=== PATIENT | male | born 1935 | race Caucasian/White ===

== ENCOUNTER 2022-06-15 05:40 | Day surgery (SDC) | payer MEDICARE, BC, SELFPAY ==
--- NOTE | 2022-06-05 10:14 | PCM.HP.BLA ---
History and Physical History and Physical [facility] Patient Name: Cecilio Gutiérrez : 1935 From:? LIV PADILLA PA-C? DATE OF SURGERY:? 06/15/2022 SCHEDULED PROCEDURE:? right total hip arthroplasty HISTORY OF PRESENT ILLNESS: Preoperative history and physical exam was performed on June 03, 2022.? This is an 86-year-old male who is been having ongoing pain for the past several months with his right hip.? Pain can still reach as high as a 6/10.? Pain has been constant.? He has start up pain.? Pain is located in the right groin extending posteriorly and into the lateral hip.? He gets some radiation into the knee.? He complains of some numbness in the legs that he is getting worked up by the primary care physician.? Patient states the pain awakens him at night.? He has increased pain going up and down stairs, walking, getting up from a seated position and getting in and out of a car.? Patient has been using a cane for ambulatory assistance.? He has tried previous physical therapy and Tylenol for pain control.? Patient denies previous history of use of oral steroids or alcohol use.? Patient's x-rays reveal avascular necrosis.? Denies any bends from deep-sea diving.? Patient has medical history pertinent for depression, hypertension, gastroesophageal reflux disease, and gout.? Denies previous history of any surgery on the left hip.? After failing conservative measures and discussing treatment options was Dr. Stef Elizabeth, the patient does wish to proceed with a right total hip arthroplasty.? We are obtaining surgical clearance from the primary care physician Dr. Rivera. REVIEW OF SYSTEMS: Review Of Systems: Constitutional: Denies change in appetite, fever and weight change. Cardiovasular: Denies chest pain, heart murmur and irregular heartbeat. Respiratory: Denies cough, pneumonia, shortness of breath, tuberculosis and wheezing. Gastrointestinal: Reports heartburn, but denies constipation, diarrhea, nausea, rectal itching, bloody stools and vomiting. Musculoskeletal: Reports gait disturbance, trouble walking and weakness, but denies leg swelling and pain. Skin: Denies Raynaud's, history of shingles and tattoo. Neurological: Reports ambulatory dysfunction, dizziness and numbness/tingling but denies tremor. Psychiatric: Reports anxiety, but denies insomnia and stress. Hematologic/Lymphatic: Denies anemia, bleeding/bruising tendency and past transfusion. Reviewed and updated. PAST MEDICAL HISTORY: Advance Care Plan: No Advance Directives Effective Date: 05/27/2022 Past Medical History: Medical Problems: Acid Reflux, Depression, Gout, Hard of Hearing, High Blood Pressure Accidents: Sports Related Injury - LT KNEE Surgical Hx: Knee Arthroscopy Lt - (1955) Knee Replacement Lt - (1976) Prostatectomy - (1997) [place] Hernia Repair - (2007) [facility] Shoulder Arthroscopy LT - (1995) [place] Shoulder Arthroscopy RT - (1999) [place] Anesthesia Complications: None Assistive Devices: Glasses, Dentures, Hearing Aid, Walker Reviewed and updated. SOCIAL HISTORY: Social History: Marital: .Occupation: Retired.Work Status: Retired.Hand Dominance: Right-handed. Personal Habits:? Cigarette Use: Never Smoked Cigarettes.Smokeless Tobacco: Never Used Smokeless Tobacco.E-Cigarette Use: Never used.Alcohol: Occasionally.Drug Use: Denies Use.Enjoy Exercising: Never Exercises. Reviewed and updated. VITALS: Ht: 66 Wt: 178lb Wt k.741 BMI: 28.7 BP: 122/68 Pulse: 84 Resp: 14 T: 98.2 T: 36.8C Pain Level: 5 O2SatR: 100 ALLERGIES: No Known Drug Allergy? MEDICATIONS: Oxycodone HCL 5 mg 1-2 tab by mouth every 4 hours, Zofran 4 mg one by mouth every 8 as needed nausea, Famotidine 20 mg 1 by mouth every day, Simvastatin 20 mg take 1 tablet by mouth at bedtime, Doxazosin Mesylate 8 mg take 2 tablets by mouth once daily, Allopurinol 300 mg take 1 tablet by mouth once daily, Escitalopram Oxalate 20 mg take 1 tablet by mouth once daily, Meloxicam 15 mg 1 by mouth once daily PRE-OP EXAM:? General appearance:NORMAL? ? ? Other: Eyes: Conjunctivae and lids: NORMAL? Pupils: ERR Ears, Nose, Mouth, and Throat: NORMAL? Other: Inspection of lips, teeth and gums: NORMAL? ?Other: Neck: Examination of neck: no masses noted. Respiratory: Assessment of respiratory effort: NORMAL? ?Other: ?Auscultation of lungs: clear to auscultation no wheezes, rhonchi or rales. Cardiovascular:? Auscultation of heart: regular rate and rhythm, no murmurs, gallops or rubs. PHYSICAL EXAMINATION: Patient does walk with an antalgic gait.? Right hip is without erythema or signs of infection.? He has tenderness to palpation over the lateral hip.? Patient has a 5 flexion contracture with flexion to 60, internal rotation 5, external rotation 20.? Pain is increased with range of motion.? Sensation intact to light touch to bilateral lower extremities.? The right lower extremity is 2 mm shorter when comparing to the left. IMAGING STUDIES: X-rays of the right hip reveal joint space narrowing, subchondral sclerosis, bony collapse, osteophyte formation consistent with avascular necrosis with associated severe stage IV osteoarthritis IMPRESSION: 1.? 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 Hypertension 3.? Gastroesophageal reflux disease 4.? Depression 5.? History of gout PLAN: Dr. Stef Elizabeth did discuss and review with the patient all treatment options including surgical versus nonsurgical options.? Patient does wish to proceed with the above-stated procedure.? Potential risks, benefits, and complications of the procedure were discussed in detail including but not limited to , infection, nerve and blood vessel damage, persistent pain, numbness, tingling, paresthesias, blood clot, pulmonary embolism, and requirement for possible further surgery.? The patient expressed full understanding and has no further questions for the doctor.? Patient does agree to proceed with the above-stated procedure and has signed the surgery consent form. We discussed the current risks associated with COVID 19.? This does include the risk of exposure while in the hospital.? Patient was reassured local hospitals have low infection rates and are taking all necessary precautions to avoid exposure to patients.? In addition, we discussed strategies that can be used to help limit exposure including those that limit the patient's time in the hospital.? Also using strategies to limit the patient's need for continued inpatient services after being discharged from the hospital.? Patient was notified that we will need to comply with any screening or testing the hospital wishes to perform or that surgery may be delayed for any positive results. This dictation was created using voice recognition software. Phonetic and/or grammatical errors may exist. ___? I have re-examined the patient.? There are no clinical changes since date of exam. ___? See progress notes for changes. ___? Dictated on admission Date: ? ? ?Time: Signature:
[2022-06-10 13:26] LABS: Absolute Neutrophil Count 6.2 X10^3/uL (2.0-7.7); Basophil# 0.01 X10^3/uL; Basophil% 0.1 % (0-1); Eosinophil# 0.13 X10^3/uL; Eosinophils% 1.4 % (0-5); Hematocrit 32.5 % (40-54); Hemoglobin 10.1 g/dL (13.0-16.5); Lymphocyte % 26.3 % (19-41); Mean Corp Hgb Conc 31.1 g/dL (32-36); Mean Corpuscular Hgb 30.2 pg (27.0-32.0); Mean Corpuscular Volume 97.3 fL (80-94); Mean Platelet Vol. 10.5 fl (6.2-12.0); Monocyte# 0.63 X10^3/uL; Monocyte% 6.6 % (0-10); NRBC Flagged by Analyzer 0 % (0-5); Neutrophil # 6.18 X10^3/uL (2.7-7.7); Neutrophil % 64.9 % (47-70); Platelet Count 141 K/mm3 (150-450); RBC Distribution Width CV 13.6 % (11.6-14.6); RBC Distribution Width SD 48.4 fl (35.1-43.9); Red Blood Count 3.34 M/mm3 (4.6-6.2); White Blood Count 9.5 K/mm3 (4.4-11.0)
[2022-06-10 13:43] LABS: Hemoglobin A1c 5.5 % (3.8-5.6)
[2022-06-10 13:49] LABS: Magnesium 2.2 mg/dL (1.6-2.6)
[2022-06-10 13:52] LABS: Albumin, Serum 3.5 g/dL (3.2-5.0); Anion Gap 6 (5-15); BUN 41 mg/dL (7-18); BUN/Creat Ratio 32.5 RATIO (10-20); Calcium,Total 10.5 mg/dL (8.5-10.1); Chloride 106 mmol/L (98-107); Creatinine, Serum 1.26 mg/dL (0.70-1.30); EST Glomerular Filtration Rate 58 mL/min (>60); Est Glom Filt Rate - Afr Amer 70 mL/min (>60); Glucose 113 mg/dL (74-106); Potassium 4.5 mmol/L (3.5-5.1); Sodium Level 140 mmol/L (136-145)
[2022-06-15] VITALS (13 sets, daily range): BP systolic 92–141; BP diastolic 52–93; PULSE 61–106; RESP 14–18; TEMP 36.2–36.8; O2SAT 96–100; BMI 28.5
--- NOTE | 2022-06-15 | HIP_PTH ---
PATIENT: PANCHO BERRY LOC: [facility] U#:[id number] AGE/SX: 86/M ROOM: RE06/15/[address]: Dr. Stef Elizabeth MD : 1935 BED: DIS: 06/15/2022 SPEC #: [id number] RECD: 06/15/22 12:16 STATUS: ARIELLE REIvan #: [id number] CAITLYN: 06/15/22 00:[address]: Stef Elizabeth DEPT: SURGICAL PATHOLOGY RECD BY: Bakari White ENTERED: 06/15/22 12:17 SP TYPE: TOTAL HIP OTHR DR: Dr. 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 YAYA:cam 06/20/2022 MICROSCOPIC DESCRIPTION Slides are reviewed. GROSS DESCRIPTION Received is one container labeled with the patient's name and designated right femoral head. The specimen consists of a markedly deformed huffman femoral head measuring 4 x 3.5 x 4 cm. The articular surface shows an extensive area of erosion. Also present in the specimen container are multiple irregular fragments of bone reamings and pink-yellow soft tissue measuring in aggregate 9 x 8 x 3 cm. [employer] Saw Tender sections are submitted in two cassettes as follows: 1 - bone reamings and soft tissue, 2??femoral head after decalcification. / YAYA:cam 06/15/2022 TC:5 [facility]: [id number], [id number]
[2022-06-15] MEDS: Celecoxib 200 MG Capsule 400 MG PO (06:32)
[2022-06-15] MEDS: Acetaminophen 500 MG Tablet 1000 MG PO ×2 (06:32→14:00)
[2022-06-15] MEDS: Gabapentin 600 MG Tablet PO (06:32)
[2022-06-15] MEDS: Lactated Ringers 1,000 ML 125 ML IV ×2 (06:33→11:11)
[2022-06-15 06:40] LABS: Bedside Glucose 83 mg/dL (74-106)
--- NOTE | 2022-06-15 07:51 | OP.PCM_ITS ---
Report of Operation Date of Procedure: 06/15/22 Pre-Operative Diagnosis: Right hip avascular necrosis Post-Operative Diagnosis: Right hip avascular necrosis Surgery/Procedure Performed:: Right minimally invasive direct anterior total hip replacement Description of Surgical Findings:: Stable hip with equal leg length Surgeon: Stef Elizabeth canine enforcement officer: Radu So Type of Anesthesia: Spinal Anesthesiologist: Richie Catherine Special Medications: 2 g Ancef, 1 g TXA at incision, 1 g TXA closure, 10 mg Decadron, joint cocktail (5 mg Duramorph, 30 mL of 0.5% Ropivicaine, 1000 units of epinephrine, 30 mg of Toradol) Specimen's removed: Bony cuts Estimated Blood Loss (mL): 350 Fluids Replaced: 1400 mL crystalloid Description of Procedure: Components used: 1. Accolade 2 [place] femoral stem size 7 127? 2. [place] trident 2 acetabular shell size 60 mm 3. [place] X3 polyethylene G 4. [place] Biolox delta 36mm, 2.5mm femoral head Brief history operative indications: 86 yo m who failed conservative measures for their hip avascular necrosis. X- rays were consistent avascular necrosis with osteoarthritis including joint space narrowing, osteophyte formation and subchondral cysts. Total hip replacement was discussed with the patient with risks and benefits including but not limited to blood loss, DVTs, PEs, neurovascular damage, dislocation, general risks of anesthesia including loss of life. Patient demonstrated an understanding medical clearance is obtained the patient was consented for surgery. Procedure: On the date of procedure the patient's right hip was marked in the preoperative area. Patient was then taken back to the operating room where anesthesia assumed control of the C-spine and airway and administered anesthetic. Patient was transferred to the operating table and placed in the supine position. The hips were placed at the break of the bed and a sacral bump was placed. The right lower extremity was then prepped out in a sterile fashion using chlorhexidine while the surgeon scrubbed. The PA was vital in the positioning of the patient. Upon reentering the room the right lower extremity was draped in the standard orthopedic fashion and the incision was marked. A timeout was called and everyone agreed upon the side, the site, the procedure be performed, antibody given, and patient's identity. At this time incision was made through skin, subcutaneous tissue, and fat down to fascia. The fascia was then incised and the TFL was retracted laterally. A retractor was placed on the lateral border of the femoral neck. Attention was directed to the inferior portion of the approach and all crossing vessels were identified and appropriately coagulated. A retractor was then placed on the medial portion of the femoral neck. The anterior capsule was then cleared of all soft tissue and then H shaped capsulotomy was made. The retractors were then placed inside the capsule. The femoral neck was identified and a cleanup cut was made. At this time a power corkscrew was used to remove the femoral head. Attention was then turned toward the acetabulum where the soft tissues were appropriately retracted and the acetabulum was sequentially reamed to 60 mm. A 60 mm cup was then selected and impacted into place. Acetabular liner was impacted into place and locking mechanism was verified. The position of the acetabular cup was then verified under live fluoroscopy. Attention was then turned to the femur. Soft tissue releases on the medial and lateral femoral neck were appropriately done, the leg was externally rotated and lateralized. A Drake retractor was placed medially and proximally to the greater trochanter this allowed appropriate visualization and exposure of the femoral canal. Rongeour was then used to remove excess lateral bone. A canal finder and entry broach were used to open the proximal canal. Once we verified we were down the femoral canal we subsequently broached up to a size 7 femur. The appropriate neck was placed in the previously selected head was trialed with a 2.5 mm neck. Traction was pulled and the hip was reduced with internal rotation. Once it was appropriately reduced and stability was checked. There was minimal shuck, equal leg lengths and appropriate stability with hyperextension and external rotation as well as with 90? flexion and internal rotation. Fluoroscopy was then also used to verify the position of the components and leg lengths using the contralateral side for comparison. The trial components were then dislocated the proximal femur was again exposed and the components were removed from the wound. The final components were verified and opened. The wound was copiously irrigated out with normal saline. The acetabulum was checked for any residual debris. The final components were placed and impacted. Traction and internal rotation were again used to reduce the hip. After adequate reduction the hip remained stable with appropriate leg lengths. The final components were once again checked with live fluoroscopy and were found to be satisfactory. The wound was then copiously irrigated with normal saline once more, and hemostasis was obtained. Closure was then done using #1 Vicryl runner to close the fascia. A 2-0 vicryl interuppted sutures were used to close the subcutaneous skin. A 3-0 Monocryl and Steri-Strips were used for final skin closure. A Silverlon dressing was placed. Patient was awakened by anesthesia and transferred to the rbondurant. Patient was then transferred to the PACU for recovery. During the course of the procedure the physician parish worker (PE) played a vital role. Their intimate knowledge of my steps in the procedure aided in safe and expedient completion of the procedure. The PE played a vital rolls in positioning particularly in obtaining the appropriate positioning of the sacral bump. The PE was also vital in the retraction of soft tissues during the exposure and especially the femoral work as this is a vital part of the procedure to prevent complications and fractures. The PE was also vital and protecting soft tissues during times of bony cuts and reaming. He also played a vital role in closure with my direct supervision. The PE was also important during reduction and dislocation of the joint and trials intraoperatively. Postoperative plan: Patient will get 24 hours postop antibiotics. Patient will get in-house physical therapy and will be weight-bear as tolerated. Patient will follow up in office in 2 weeks for a wound check and x-rays. Aspirin 81 mg twice daily. Complications No intraoperative complications Admit VTE Documentation VTE Present on Admission: No VTE Mechan Device Prophylaxis: SCD's and Thigh High JANICE Hose VTE Pharm Prophylaxis ordered?: Yes
--- NOTE | 2022-06-15 08:00 | RAD_ITS ---
STUDY: X-RAY - PELVIS AND RIGHT HIP REASON FOR EXAM: Male, 86 years old. TOTAL HIP ANTERIOR APPROACH TECHNIQUE: 1 views of the pelvis and hip. COMPARISON: None. FINDINGS: Intraoperative imaging was provided for right total hip replacement. There is good alignment. No radiopaque foreign body is seen. RAD/Hip 1 view with Pelvis IMPRESSION: Status post right total hip replacement. There is good alignment. No radiopaque foreign body is seen. Electronically Signed: Ulices Santos MD at 14:15 EDT ,
[2022-06-15] MEDS: Cefazolin 2 GM in 0.9% Normal Saline 100 ML IV (08:04)
[2022-06-15] MEDS: TXA 1000mg in NS100 100ml (IVPB at Incision) 660 MG IV (08:15)
[2022-06-15] MEDS: dexAMETHasone 10 MG/ML Vial IV (08:27)
[2022-06-15] MEDS: Lactated Ringers 1,000 ML 999 ML IV (08:31)
[2022-06-15] MEDS: TXA 1000mg in NS100 100ml (IVPB at Closure) 660 MG IV (09:37)
--- NOTE | 2022-06-15 10:00 | RAD_ITS ---
STUDY: X-RAY - PELVIS AND RIGHT HIP REASON FOR EXAM: Male, 86 years old. LOOKING FOR SURGICAL SPONGE IN OR TECHNIQUE: 1 views of the pelvis and hip. COMPARISON: None. FINDINGS: No radiopaque foreign body is seen. Surgical clips are seen in the pelvis. RAD/Hip 1 view with Pelvis IMPRESSION: No radiopaque foreign body is seen. Electronically Signed: Ulices Santos MD at 10:29 EDT ,
--- NOTE | 2022-06-15 10:30 | RAD_ITS ---
STUDY: X-RAY - PELVIS AND RIGHT HIP REASON FOR EXAM: Male, 86 years old. Hip -- in PACU TECHNIQUE: 2 views of the pelvis and hip. COMPARISON: Comparison is made with prior study done earlier today. FINDINGS: The patient is status post right total hip replacement. There is good alignment. Postoperative soft tissue changes. No radiopaque foreign body is seen. Surgical clips are seen in the region of the prostate. RAD/Hip Min 2 Views (Portable) IMPRESSION: Status post right total hip replacement. There is good alignment. Postoperative soft tissue changes. No radiopaque foreign body is seen. Electronically Signed: Ulices Santos MD at 10:46 EDT ,
[2022-06-15] MEDS: Cefazolin 1 GM/50 ML BAG IV (12:40)
[2022-06-15] MEDS: Pantoprazole Sodium 20 MG Tablet PO (13:15)
== END 2022-06-15 15:41 | disposition home or self-care (01) ==
LOC: SDC 05:45 → AC 05:46
PROVIDERS: Anesthesiology; PCP Preventive Medicine Occupational Medicine; Referring Provider Specialist; Visit Provider Specialist
PROC: (CPT 27284; principal; 2022-06-15 07:35)
DX: M87.051 Idiopathic aseptic necrosis of right femur (principal); M16.11 Unilateral primary osteoarthritis, right hip; F32.A Depression, unspecified; K21.9 Gastro-esophageal reflux disease without esophagitis; I10 Essential (primary) hypertension; H91.90 Unspecified hearing loss, unspecified ear; M10.9 Gout, unspecified; F41.9 Anxiety disorder, unspecified; Z79.899 Other long term (current) drug therapy
CPT/HCPCS: 27130; 01214; 36415; 73501; 73502; 76000; 80048; 82040; 82962; 83036; 83735; 85025; 87081; 88305; 88311; 93005; 97162; C1776; J7120; J2405; J3475

== ENCOUNTER 2022-06-17 13:23 | Emergency (ER) | payer MEDICARE, BC, SELFPAY ==
[2022-06-17 13:25] VITALS: BP 118/51; PULSE 93; RESP 16; TEMP 36.5; O2SAT 99; BMI 27.3
[2022-06-17] MEDS: 0.9% Normal Saline 1,000 ML 1000 ML IV (14:46)
[2022-06-17 14:51] LABS: Bacteria 0 SEEN /hpf (None Seen); Mucous, Urine 0 SEEN /hpf (<or=2+); Red Blood Cells-Urine 0 SEEN /hpf (0-5); Squamous Epithelial Cells - UA 0 SEEN /hpf (0-5); White Blood Cells 0 SEEN /hpf (0-5)
[2022-06-17 14:53] LABS: Absolute Neutrophil Count 6.2 X10^3/uL (2.0-7.7); Basophil# 0.01 X10^3/uL; Basophil% 0.1 % (0-1); Color, Urine Yellow (Yellow); Eosinophil# 0.05 X10^3/uL; Eosinophils% 0.5 % (0-5); Glucose, Dipstick Normal (Normal); Hematocrit 23.5 % (40-54); Hemoglobin 7.4 g/dL (13.0-16.5); Ketone-Dipstick Negative (Negative); Leukocyte Esterase-Dipstick Negative /ul (Negative); Lymphocyte % 23.9 % (19-41); Mean Corp Hgb Conc 31.5 g/dL (32-36); Mean Corpuscular Hgb 30.8 pg (27.0-32.0); Mean Corpuscular Volume 97.9 fL (80-94); Mean Platelet Vol. 9.9 fl (6.2-12.0); Monocyte# 0.73 X10^3/uL; Monocyte% 7.9 % (0-10); NRBC Flagged by Analyzer 0 % (0-5); Neutrophil # 6.17 X10^3/uL (2.7-7.7); Neutrophil % 66.9 % (47-70); Nitrite-Dipstick Negative (Negative); Occult Blood-Urine Negative /ul (Negative); Platelet Count 129 K/mm3 (150-450); Protein-Dipstick 15 mg/dl (Negative); RBC Distribution Width SD 50.9 fl (35.1-43.9); Urine Bilirubin Dipstick Negative (Negative); Urine Clarity Sl. Cloudy (Clear); Urine Urobilinogen Normal (Normal); White Blood Count 9.2 K/mm3 (4.4-11.0)
--- NOTE | 2022-06-17 15:00 | RAD_ITS ---
STUDY: X-RAY - ABDOMEN/PELVIS REASON FOR EXAM: Male, 86 years old. Constipation TECHNIQUE: AP supine and decubitus views of the abdomen and pelvis. COMPARISON: None. FINDINGS: Normal visualized lung bases. There is thickening of the haustral pattern of the transverse colon. This may represent findings compatible with colitis. There is no demonstrated free abdominal air. The visualized liver, spleen and kidneys are grossly normal in size and morphology. Surgical clips are seen in the pelvis most likely secondary to prior prostate surgery. There are diffuse degenerative changes of the visualized lumbar spine. Status post right hip replacement. RAD/Abd Decub and/or Erect(Portabl IMPRESSION: Findings suggestive of thickening of the haustral pattern of the transverse colon. Colitis should be ruled out. Electronically Signed: Ulices Santos MD at 15:29 EDT ,
[2022-06-17 15:09] LABS: ALB/GLOB Ratio 1.2 RATIO (0.9-2.4); AST(SGOT) 22 U/L (15-37); Alanine Aminotransfer ALT/SGPT 17 U/L (16-61); Albumin, Serum 2.7 g/dL (3.2-5.0); Alkaline Phosphatase 82 U/L (45-117); Anion Gap 7 (5-15); BUN 57 mg/dL (7-18); BUN/Creat Ratio 45.2 RATIO (10-20); Calcium,Total 9.9 mg/dL (8.5-10.1); Chloride 105 mmol/L (98-107); Creatinine, Serum 1.26 mg/dL (0.70-1.30); EST Glomerular Filtration Rate 58 mL/min (>60); Est Glom Filt Rate - Afr Amer 70 mL/min (>60); Estimated Creatinine Clearance 40.07 ml/min; Globulin 2.3 g/dL (2.2-4.2); Glucose 106 mg/dL (74-106); Potassium 4.3 mmol/L (3.5-5.1); Sodium Level 140 mmol/L (136-145)
--- NOTE | 2022-06-17 15:35 | ED.VIS.GI ---
HPI HPI - GI History of Present Illness Chief Complaint: Weakness Narrative Narrative: 86-year-old male status post right hip replacement on Monday, 2 days ago, presents with generalized weakness. He states last evening, he began feeling generally weak. He denies any fevers or chills. States he is constipated and has not had a bowel movement, and additionally he was urinating all night. He states that he continues to go and have urination all evening. He denies any fevers or chills. He states his incision on his right hip does not appear red or swollen. He presents mainly because of the generalized weakness. [facility] Medical History Anxiety Arthritis Cancer Depression Gastric reflux High cholesterol History of edema History of pain when walking History of steroid therapy Hypertension Non-smoker Prostate disease Shortness of breath on exertion Walker as ambulation aid Wears dentures Wears glasses Wears hearing aid Home Medications allopurinol 300 mg tablet 300 mg PO DAILY 12/31/15 [History Last Taken Unknown] doxazosin 8 mg tablet (Cardura) 12 mg PO DAILY 12/31/15 [History Last Taken 01/05/16 00:00] omeprazole 20 mg capsule,delayed release 20 mg PO DAILY 12/31/15 [History Last Taken 01/05/16 00:00] simvastatin 20 mg tablet 20 mg PO QHS 12/31/15 [History Last Taken Unknown] calcium carbonate 500 mg calcium (1,250 mg) chewable tablet 500 mg PO TID PRN Indigestion 06/09/22 [History Last Taken Unknown] calcium carbonate 600 mg calcium (1,500 mg) tablet (Calcium) 1,200 mg PO DAILY 06/09/22 [History Last Taken Unknown] cholecalciferol (vitamin D3) 25 mcg (1,000 unit) capsule (Vitamin D3) 25 mcg PO DAILY 06/09/22 [History Last Taken Unknown] escitalopram oxalate 20 mg tablet (Lexapro) 20 mg PO DAILY 06/09/22 [History Last Taken Unknown] valsartan 320 mg tablet 320 mg PO QHS 06/09/22 [History Last Taken Unknown] ferrous sulfate 325 mg (65 mg iron) tablet 325 mg PO BID #60 tabs 06/17/22 [Rx Last Taken Unknown] folic acid 1 mg tablet 1 mg PO DAILY #30 tabs 06/17/22 [Rx Last Taken Unknown] Allergy/AdvReac Type Severity Reaction Status Date / Time No Known Allergies Allergy Verified 06/17/22 13:24 Surgical History H/O total hip arthroplasty Hx of colonoscopy Hx of prostatectomy Hx of repair of left rotator cuff Hx of repair of right rotator cuff Hx of right inguinal hernia repair Hx of total knee arthroplasty Social History Smoking Status: Never smoker ROS ROS ED ROS Narrative Constitutional: No fever, no chills. Generalized weakness. HEENT: No sore throat. No neck pain. No loss of vision. No rhinorrhea. Cardiovascular: No chest pain. No palpitations. No pedal edema. Respiratory: No cough, no shortness of breath. Abdominal: No abdominal pain. No nausea. No vomiting. Positive constipation. Genitourinary: No dysuria. No hematuria. Urinary frequency. Musculoskeletal: No myalgias. No arthralgias. Neurologic: No headaches. No dizziness. No lightheadedness. Skin: No rash. No change in color. Psychiatric: No depression. No anxiety. EXAM Physical Exam Narrative Exam Narrative: Afebrile. Vital signs noted. HEENT: Normocephalic. Atraumatic. PERRL, EOMI. Neck soft and supple. No point tenderness or step off. Cardiovascular: Regular rate and rhythm. No murmurs, rubs, or gallops appreciated. Respiratory: No tachypnea. Lungs clear to auscultation bilaterally. Gastrointestinal: Abdomen soft, nontender, with normoactive bowel sounds. No rebound or guarding. Neurological: Awake. Alert. Nonfocal, nonlateralizing. Skin: No rash. Normal color. No pallor. Musculoskeletal: No pedal edema. Full range of motion extremities. Const Vital Signs: 06/17/22 13:25 06/17/22 15:37 06/17/22 15:37 Temperature 97.7 F L 98.5 F 98.5 F Temperature Source Temporal Oral Oral Pulse Rate 93 77 77 Respiratory Rate 16 14 14 Blood Pressure 118/51 L 134/60 H 134/60 H Blood Pressure Mean 73 84 84 Pulse Ox 99 Oxygen Delivery Method Room Air MDM MDM MDM Narrative Medical decision making narrative: Basic laboratory work was obtained. He has a normal white count of 9.2, hemoglobin low at 7.4. Platelet count also low at 129. His electrolyte panel is grossly unremarkable with normal sodium and potassium. BUN elevated at 57 with a creatinine of 1.26. Urinalysis shows no evidence of infection with negative nitrites and negative leukocyte esterase, and 0 WBCs or bacteria seen. X-rays of the abdomen interpreted by myself shows no evidence of obstruction. I did not see a large fecal burden. As far as his urination problem and urinary frequency is concerned, it was reported by the RN that he dribbled all over the place after providing a urine sample. He may be having more of a neurogenic bladder problem after anesthesia. Additionally, radiology interpreted his x-ray and mention colitis with haustral Thickening, but the patient is not having any abdominal pain. I discussed the patient with Dr. Elizabeth. Was not felt that the patient needed emergent transfusion. Instead, through shared decision making with the patient included, he will be placed on folic acid and iron. He would like outpatient treatment and will follow-up with his primary care physician. He will also follow-up with his orthopedic surgeon in approximately 2 weeks. He declined observation/admission to be placed in rehabilitation. He has already been set up to go to rehabilitation as an outpatient. I feel he can be discharged safely home with follow-up. Return instructions to the emergency department were reviewed. Patient and his daughter are comfortable with the plan. Disposition is discharged home in stable condition. Lab Data Attestation: I reviewed the patient's lab results. Labs: Laboratory Results - last 24 hr 06/17/22 06/17/22 06/17/22 14:45 14:45 14:45 WBC 9.2 RBC 2.40 L Hgb 7.4 L Hct 23.5 L MCV 97.9 H MCH 30.8 MCHC 31.5 L RDW Std Deviation 50.9 H RDW Coeff of Kandi 14.0 Plt Count 129 L MPV 9.9 Immature Gran % (Auto) 0.700 Neut % (Auto) 66.9 Lymph % (Auto) 23.9 [place] % (Auto) 7.9 Eos % (Auto) 0.5 Baso % (Auto) 0.1 Absolute Neuts (auto) 6.2 Absolute Lymphs (auto) 2.20 Nucleated RBC % 0 Sodium 140 Potassium 4.3 Chloride 105 Carbon Dioxide 28.0 Anion Gap 7 BUN 57 H Creatinine 1.26 Estim Creat Clear Calc 40.07 Est GFR (MDRD) Af Amer 70 Est GFR (MDRD) Non-Af 58 L BUN/Creatinine Ratio 45.2 H Glucose 106 Calcium 9.9 Total Bilirubin 0.40 AST 22 ALT 17 Alkaline Phosphatase 82 Total Protein 5.0 L Albumin 2.7 L Globulin 2.3 Albumin/Globulin Ratio 1.2 Urine Color Yellow Urine Clarity Sl. Cloudy Urine pH 6.0 Ur Specific [place] 1.010 Urine Protein 15 H Urine Glucose (UA) Normal Urine Ketones Negative Urine Occult Blood Negative Urine Nitrite Negative Urine Bilirubin Negative Urine Urobilinogen Normal Ur Leukocyte Esterase Negative Urine RBC 0 SEEN Urine WBC 0 SEEN Ur Squamous Epith Cells 0 SEEN Urine Bacteria 0 SEEN Urine Mucus 0 SEEN Radiography Diagnostic Testing: Clinical Impression(s) from Imaging Studies Abdomen X-Ray 06/17/22 15:00 IMPRESSION: Findings suggestive of thickening of the haustral pattern of the transverse colon. Colitis should be ruled out. Electronically Signed: Ulices aSntos MD at 15:29 EDT , Discharge Plan Triage Chief Complaint: Weakness Other Complaint: Constipation ED Provider: Shalom Suggs Dx/Rx/DC Orders Clinical Impression: Status post right hip replacement, Generalized weakness, Anemia Instructions: ED Anemia, Type Not Specified (Adult), ED Weakness (Uncertain Cause) Prescriptions: New folic acid 1 mg tablet 1 mg PO DAILY Qty: 30 0RF ferrous sulfate 325 mg (65 mg iron) tablet 325 mg PO BID Qty: 60 0RF No Action doxazosin [Cardura] 8 MG tablet 12 mg PO DAILY simvastatin 20 MG tablet 20 mg PO QHS omeprazole 20 MG capsule 20 mg PO DAILY allopurinol 300 MG tablet 300 mg PO DAILY Label Comments: GOUT calcium carbonate [Calcium 600] 600 mg calcium (1,500 mg) Tablet 1,200 mg PO DAILY valsartan 320 mg Tablet 320 mg PO QHS calcium carbonate [Tums 500] 500 mg calcium (1,250 mg) Tablet,Chewable 500 mg PO TID PRN (Reason: Indigestion) cholecalciferol (vitamin D3) [Vitamin D3] 25 mcg (1,000 unit) Capsule 25 mcg PO DAILY escitalopram oxalate [Lexapro] 20 mg Tablet 20 mg PO DAILY Primary Care Provider: Dany Hilliard Referrals: Dany Hilliard DO [Primary Care Provider] - 5-7 Days Disposition Disposition: Home, Self Care
[2022-06-17 15:37] VITALS: BP 134/60; PULSE 77; RESP 14; TEMP 36.9
== END 2022-06-17 16:57 | disposition home or self-care (01) ==
PROVIDERS: Emergency Provider Emergency Medicine; PCP Preventive Medicine Occupational Medicine; Visit Provider Emergency Medicine
DX: R53.1 Weakness (principal); Z96.641 Presence of right artificial hip joint; I10 Essential (primary) hypertension; E78.00 Pure hypercholesterolemia, unspecified; D64.9 Anemia, unspecified
CPT/HCPCS: 99283; 74019; 80053; 81001; 85025; J7030

== ENCOUNTER 2022-06-20 11:22 | Inpatient (IN) | payer MEDICARE, BC, SELFPAY ==
[2022-06-20] VITALS (13 sets, daily range): BP systolic 116–175; BP diastolic 50–82; PULSE 70–95; RESP 16–20; TEMP 36.3–37.3; O2SAT 95–100; BMI 26.7
--- NOTE | 2022-06-20 11:59 | EX.ED.DYSGE1 ---
HPI History of Present Illness Chief Complaint: GI Bleed Informant: patient Narrative Narrative: 6-year-old male presenting to the emergency room with GI bleed. He tells me that last Monday he underwent a total hip replacement with Dr. Elizabeth. He states that on Monday he began to have some blood passing when he felt he needed to have a bowel movement. Monday he had some small stool but continued blood. On Monday and Monday this was only 1 time each day. On Monday he states that he had brown bowel movements but with bright red blood. Today he states he had a bowel movement with very little blood. He feels weeks when he stands and tries to walk. From an orthopedic standpoint he states he is doing quite well. He is not on any blood thinners. He does take omeprazole daily but denies any upper abdominal discomfort or discomfort with eating. [facility] Medical History Anxiety Arthritis Cancer Depression Gastric reflux High cholesterol History of edema History of pain when walking History of steroid therapy Hypertension Non-smoker Prostate disease Shortness of breath on exertion Walker as ambulation aid Wears dentures Wears glasses Wears hearing aid Home Medications allopurinol 300 mg tablet 300 mg PO DAILY 12/31/15 [History Last Taken Unknown] doxazosin 8 mg tablet (Cardura) 12 mg PO DAILY 12/31/15 [History Last Taken 01/05/16 00:00] omeprazole 20 mg capsule,delayed release 20 mg PO DAILY 12/31/15 [History Last Taken 01/05/16 00:00] simvastatin 20 mg tablet 20 mg PO QHS 12/31/15 [History Last Taken Unknown] calcium carbonate 500 mg calcium (1,250 mg) chewable tablet 500 mg PO TID PRN Indigestion 06/09/22 [History Last Taken Unknown] calcium carbonate 600 mg calcium (1,500 mg) tablet (Calcium) 1,200 mg PO DAILY 06/09/22 [History Last Taken Unknown] cholecalciferol (vitamin D3) 25 mcg (1,000 unit) capsule (Vitamin D3) 25 mcg PO DAILY 06/09/22 [History Last Taken Unknown] escitalopram oxalate 20 mg tablet (Lexapro) 20 mg PO DAILY 06/09/22 [History Last Taken Unknown] valsartan 320 mg tablet 320 mg PO QHS 06/09/22 [History Last Taken Unknown] ferrous sulfate 325 mg (65 mg iron) tablet 325 mg PO BID #60 tabs 06/17/22 [Rx Last Taken Unknown] folic acid 1 mg tablet 1 mg PO DAILY #30 tabs 06/17/22 [Rx Last Taken Unknown] Allergy/AdvReac Type Severity Reaction Status Date / Time No Known Allergies Allergy Verified 06/20/22 11:25 Surgical History H/O total hip arthroplasty Hx of colonoscopy Hx of prostatectomy Hx of repair of left rotator cuff Hx of repair of right rotator cuff Hx of right inguinal hernia repair Hx of total knee arthroplasty Social History (Updated 06/20/22 @ 12:[address] David Abrams DO) Smoking Status: Never smoker substance use type: does not use ROS ROS ED Constitutional Constitutional ED: Denies chills or weight loss Eyes Eyes: Denies change in vision or diplopia ENT ENT ED: Denies ear pain, rhinorrhea or sore throat Cardiovascular Cardiovascular: Denies chest pain, orthopnea, palpitations or racing heartbeat Respiratory/Chest Respiratory/Chest: Denies cough, dyspnea or orthopnea Gastrointestinal Gastrointestinal: Reports other Details: Bright red blood per rectum ; Denies abdominal pain, constipation, diarrhea, nausea or vomiting Genitourinary Genitourinary ED: Denies dysuria, hematuria or urinary frequency Musculoskeletal Musculoskeletal: Denies arthralgias or myalgias Integumentary Denies abscess or rash Neurologic Neurologic: Denies headache(s) or weakness Psychiatric Psychiatric: Denies anxiety, depression, suicidal ideation or suicidal thoughts Endocrine Endocrinology: Denies polydipsia, polyphagia or polyuria Allergic/Immunologic Allergic/Immunologic ED: Denies mouth swelling, tongue swelling or urticaria EXAM Physical Exam Const Vital Signs: 06/20/22 11:22 06/20/22 12:23 Temperature 97.4 F L Temperature Source Temporal Pulse Rate 90 Pulse Rate [Lying] 71 Pulse Rate [Sitting (for 1 minute prior to obtaining)] 74 Pulse Rate [Standing (for 1 minute prior to obtaining)] 95 Respiratory Rate 16 Blood Pressure 116/55 L Blood Pressure [Lying] 130/60 H Blood Pressure [Sitting (for 1 minute prior to obtaining)] 120/68 Blood Pressure [Standing (for 1 minute prior to obtaining)] 117/50 L Blood Pressure Mean 75 Blood Pressure Mean [Lying] 83 Blood Pressure Mean [Sitting (for 1 minute prior to obtaining)] 85 Blood Pressure Mean [Standing (for 1 minute prior to obtaining)] 72 Pulse Ox 97 Oxygen Delivery Method Room Air Positive well nourished and well developed General Appearance ED: well developed HEENT Reports normocephalic, head/scalp atraumatic and moist mucous membranes Eyes PERRL and EOMs intact bilaterally Neck no lymphadenopathy, supple and no JVD Resp normal respiratory effort and clear to auscultation bilaterally Cardio regular rate, regular rhythm and no murmurs GI normal to inspection, nondistended, normoactive bowel sounds and non-tender Palpation: soft Narrative: There is some dried black stool on the buttocks. Rectal examination shows no gross blood and no stool in the vault. Back/Spine no CVA tenderness and normal ROM Extremity Extremity Narrative: There is a healing surgical incision over the right greater trochanter region. There is some ecchymosis. The incision appears clean dry intact. General Extremety ED: Negative for edema General Extremity: Negative for edema Neuro oriented x3 and CN's II-XII intact bilaterally Sensorium / Orientation: alert Motor Exam: strength 5/5 throughout Psych mental status grossly normal Mood & Affect: Negative for depressed or tearful Skin no rashes or lesions noted and no wounds MDM MDM MDM Narrative Medical decision making narrative: Patient is postop total right hip replacement. Not on any blood thinners. He is orthostatic positive. His hemoglobin is 7.3. He did have hemoglobin drawn on Monday and does not show a substantial decrease from that time however he is symptomatic. His coags are normal. There is no stool in the rectal vault to test but there was some black tarry stool that was dried in the perineum consistent with a GI bleed. At this point I will speak with the hospitalist regarding admission. I will speak with Dr. Elizabeth as he is a recent surgical patient Lab Data Attestation: I reviewed the patient's lab results. Labs: Laboratory Results - last 24 hr 06/20/22 06/20/22 06/20/22 12:05 12:05 12:05 WBC 7.7 RBC 2.30 L Hgb 7.3 L Hct 22.6 L MCV 98.3 H MCH 31.7 MCHC 32.3 RDW Std Deviation 50.0 H RDW Coeff of Kandi 13.8 Plt Count 170 MPV 10.3 Immature Gran % (Auto) 0.800 Neut % (Auto) 61.0 Lymph % (Auto) 29.4 [place] % (Auto) 7.7 Eos % (Auto) 1.0 Baso % (Auto) 0.1 Absolute Neuts (auto) 4.7 Absolute Lymphs (auto) 2.26 Nucleated RBC % 0 PT 14.4 INR 1.2 APTT 28.4 Sodium 142 Potassium 4.4 Chloride 108 H Carbon Dioxide 28.0 Anion Gap 6 BUN 29 H Creatinine 1.11 Estim Creat Clear Calc 47.07 Est GFR (MDRD) Af Amer 81 Est GFR (MDRD) Non-Af 67 BUN/Creatinine Ratio 26.1 H Glucose 106 Calcium 9.7 Total Bilirubin 0.60 AST 21 ALT 21 Alkaline Phosphatase 81 Total Protein 5.0 L Albumin 2.6 L Globulin 2.4 Albumin/Globulin Ratio 1.1 Lipase 70 L Crossmatch 06/20/22 13:10 WBC RBC Hgb Hct MCV MCH MCHC RDW Std Deviation RDW Coeff of Kandi Plt Count MPV Immature Gran % (Auto) Neut % (Auto) Lymph % (Auto) [place] % (Auto) Eos % (Auto) Baso % (Auto) Absolute Neuts (auto) Absolute Lymphs (auto) Nucleated RBC % PT INR APTT Sodium Potassium Chloride Carbon Dioxide Anion Gap BUN Creatinine Estim Creat Clear Calc Est GFR (MDRD) Af Amer Est GFR (MDRD) Non-Af BUN/Creatinine Ratio Glucose Calcium Total Bilirubin AST ALT Alkaline Phosphatase Total Protein Albumin Globulin Albumin/Globulin Ratio Lipase Crossmatch See Detail Discharge Plan Triage Chief Complaint: GI Bleed ED Provider: David Abrams Dx/Rx/DC Orders Prescriptions: No Action doxazosin [Cardura] 8 MG tablet 12 mg PO DAILY simvastatin 20 MG tablet 20 mg PO QHS omeprazole 20 MG capsule 20 mg PO DAILY allopurinol 300 MG tablet 300 mg PO DAILY Label Comments: GOUT calcium carbonate [Calcium 600] 600 mg calcium (1,500 mg) Tablet 1,200 mg PO DAILY valsartan 320 mg Tablet 320 mg PO QHS calcium carbonate [Tums 500] 500 mg calcium (1,250 mg) Tablet,Chewable 500 mg PO TID PRN (Reason: Indigestion) cholecalciferol (vitamin D3) [Vitamin D3] 25 mcg (1,000 unit) Capsule 25 mcg PO DAILY escitalopram oxalate [Lexapro] 20 mg Tablet 20 mg PO DAILY folic acid 1 mg tablet 1 mg PO DAILY Qty: 30 0RF ferrous sulfate 325 mg (65 mg iron) tablet 325 mg PO BID Qty: 60 0RF Primary Care Provider: Dany Hilliard Referrals: Dany Hilliard DO [Primary Care Provider] -
[2022-06-20 12:18] LABS: Absolute Lymphocyte Count 2.26 X10^3/uL (0.83-4.51); Absolute Neutrophil Count 4.7 X10^3/uL (2.0-7.7); Basophil# 0.01 X10^3/uL; Basophil% 0.1 % (0-1); Eosinophil# 0.08 X10^3/uL; Hematocrit 22.6 % (40-54); Hemoglobin 7.3 g/dL (13.0-16.5); Lymphocyte # 2.26 X10^3/ul (0.83-4.51); Lymphocyte % 29.4 % (19-41); Mean Corp Hgb Conc 32.3 g/dL (32-36); Mean Corpuscular Hgb 31.7 pg (27.0-32.0); Mean Corpuscular Volume 98.3 fL (80-94); Mean Platelet Vol. 10.3 fl (6.2-12.0); Monocyte# 0.59 X10^3/uL; Monocyte% 7.7 % (0-10); NRBC Flagged by Analyzer 0 % (0-5); Neutrophil # 4.69 X10^3/uL (2.7-7.7); Platelet Count 170 K/mm3 (150-450); RBC Distribution Width CV 13.8 % (11.6-14.6); White Blood Count 7.7 K/mm3 (4.4-11.0)
[2022-06-20] MEDS: 0.9% Normal Saline 1,000 ML 1000 ML IV (12:21)
[2022-06-20 12:30] LABS: International Normalized Ratio 1.2; Partial Thromboplast Time 28.4 Seconds (24.1-36.2); Prothrombin Time (Protime)PT. 14.4 SECONDS (11.7-14.9)
[2022-06-20 12:36] LABS: ALB/GLOB Ratio 1.1 RATIO (0.9-2.4); AST(SGOT) 21 U/L (15-37); Alanine Aminotransfer ALT/SGPT 21 U/L (16-61); Albumin, Serum 2.6 g/dL (3.2-5.0); Alkaline Phosphatase 81 U/L (45-117); Anion Gap 6 (5-15); BUN 29 mg/dL (7-18); BUN/Creat Ratio 26.1 RATIO (10-20); Calcium,Total 9.7 mg/dL (8.5-10.1); Chloride 108 mmol/L (98-107); Creatinine, Serum 1.11 mg/dL (0.70-1.30); EST Glomerular Filtration Rate 67 mL/min (>60); Est Glom Filt Rate - Afr Amer 81 mL/min (>60); Estimated Creatinine Clearance 47.07 ml/min; Globulin 2.4 g/dL (2.2-4.2); Glucose 106 mg/dL (74-106); Lipase 70 U/L (73-393); Potassium 4.4 mmol/L (3.5-5.1); Sodium Level 142 mmol/L (136-145)
--- NOTE | 2022-06-20 14:10 | PCM.HP.STD ---
HPI - General General Date of Admission: 06/20/22 Date of Service: 06/20/22 Chief Complaint: rectal bleeding HPI Narrative PANCHO BERRY, is a 86 M with a PMH as outlined who presents via the ED on 06/20/2022 with a complaint of rectal bleeding. He had a right total hip replacement by orthopedics ~ a week ago. He was discharged home the next day and said he started having rectal bleeding on POD 2. The bleeding persisted and worsened over the subsequent few days. Per her daughter, he was placed on a baby aspirin once daily for 2 weeks for DVT prophylaxis and started taking it the day after the surgery. Rectal bleeding persisted and he started also feeling dizzy and lightheaded. He denied headache, chest pain, abdominal pain, nausea or vomiting. Review of systems was otherwise negative. Vitals in the ED were BP of 130/60, HI of 71 and temp of 97.4F. RR was 14 and he was saturating at 97% on room air. CBC showed Hb of 7.3, wbc of 7.7 and platelets of 170. BMP was unremarkable, with BUN of 29 and Cr of 1.11. INR was 1.2. Rectal exam showed tarry black stool. He is being admitted to be managed for rectal bleeding with orthostatic hypotension [facility] Medical History Anxiety Arthritis Cancer Depression Gastric reflux High cholesterol History of edema History of pain when walking History of steroid therapy Hypertension Non-smoker Prostate disease Shortness of breath on exertion Walker as ambulation aid Wears dentures Wears glasses Wears hearing aid Home Medications allopurinol 300 mg tablet 300 mg PO DAILY 12/31/15 [History Last Taken 06/20/22] doxazosin 8 mg tablet (Cardura) 16 mg PO DAILY HEART 12/31/15 [History Last Taken 06/20/22] simvastatin 20 mg tablet 20 mg PO QHS 12/31/15 [History Last Taken 06/20/22] calcium carbonate 500 mg calcium (1,250 mg) chewable tablet 1,000 mg PO TID PRN Indigestion 06/09/22 [History Last Taken 06/20/22 03:00] calcium carbonate 600 mg calcium (1,500 mg) tablet (Calcium) 900 mg PO DAILY SUPPLEMENT 06/09/22 [History Last Taken 06/20/22] cholecalciferol (vitamin D3) 25 mcg (1,000 unit) capsule (Vitamin D3) 25 mcg PO DAILY SUPPLEMENT 06/09/22 [History Last Taken 06/20/22] escitalopram oxalate 20 mg tablet (Lexapro) 20 mg PO DAILY 06/09/22 [History Last Taken 06/20/22] valsartan 320 mg tablet 320 mg PO QHS 06/09/22 [History Last Taken Unknown] ferrous sulfate 325 mg (65 mg iron) tablet 325 mg PO BID #60 tabs 06/17/22 [Rx Last Taken 06/20/22] folic acid 1 mg tablet 1 mg PO DAILY #30 tabs 06/17/22 [Rx Last Taken 06/20/22] aspirin 81 mg tablet,delayed release 81 mg PO DAILY 06/20/22 [History Last Taken 06/20/22] famotidine 20 mg tablet 20 mg PO DAILY 06/20/22 [History Last Taken 06/20/22] ondansetron HCl 4 mg tablet 4 mg PO Q8H PRN Nausea 06/20/22 [History Last Taken Unknown] oxycodone 5 mg tablet 5 - 10 mg PO Q4H PAIN 06/20/22 [History Last Taken Unknown] Allergy/AdvReac Type Severity Reaction Status Date / Time No Known Allergies Allergy Verified 06/20/22 11:25 Surgical History H/O total hip arthroplasty Hx of colonoscopy Hx of prostatectomy Hx of repair of left rotator cuff Hx of repair of right rotator cuff Hx of right inguinal hernia repair Hx of total knee arthroplasty Social History (Updated 06/20/22 @ 12:[address] David Abrams DO) Smoking Status: Never smoker substance use type: does not use ROS Constitutional Constitutional: Denies anorexia, chills, fatigue, fever(s), malaise or weakness Eyes Eyes: Denies change in vision ENT HEENT: Denies dysphagia, headache(s), nasal congestion or sore throat Respiratory/Chest Respiratory/Chest: Denies cough, dyspnea, hemoptysis, productive cough, shortness of breath at rest or shortness of breath with exertion Gastrointestinal Gastrointestinal: Reports hematochezia and melena; Denies abdominal pain, coffee ground emesis, constipation, diarrhea, dyspepsia, hematemesis, loose stools, nausea or vomiting Genitourinary Genitourinary: Denies burning urination, dysuria or hematuria Musculoskeletal Musculoskeletal: Denies arthralgias or back pain Neurologic Neurologic: Denies confusion, dizziness, focal weakness, headache(s), numbness, seizures or syncope Psychiatric Psychiatric: Denies anxiety Endocrine Endocrinology: Denies change in body appearance Hematologic/Lymphatic Hematologic/Lymphatic: Reports anemia; Denies easy bleeding or easy bruising Vital Signs Vital Signs Vital Signs: 06/20/22 11:22 06/20/22 12:23 Temperature 97.4 F L Temperature Source Temporal Pulse Rate 90 Pulse Rate [Lying] 71 Pulse Rate [Sitting (for 1 minute prior to obtaining)] 74 Pulse Rate [Standing (for 1 minute prior to obtaining)] 95 Respiratory Rate 16 Blood Pressure 116/55 L Blood Pressure [Lying] 130/60 H Blood Pressure [Sitting (for 1 minute prior to obtaining)] 120/68 Blood Pressure [Standing (for 1 minute prior to obtaining)] 117/50 L Blood Pressure Mean 75 Blood Pressure Mean [Lying] 83 Blood Pressure Mean [Sitting (for 1 minute prior to obtaining)] 85 Blood Pressure Mean [Standing (for 1 minute prior to obtaining)] 72 Pulse Ox 97 Oxygen Delivery Method Room Air Weight Weight: 176 lb Body Mass Index (BMI) 26.7 Physical Exam Const alert, oriented x3 and no apparent distress General Appearance: cooperative HEENT normocephalic, head/scalp atraumatic, hearing grossly normal bilaterally and moist oral mucous membranes Mouth: oral and palatal mucosa normal Eyes PERRL, EOMs intact bilaterally and conjunctivae normal Neck no lymphadenopathy, supple, no JVD and no carotid bruits Resp normal respiratory effort, no retractions, no use of accessory muscles and clear to auscultation bilaterally Cardio regular rate, regular rhythm, S1 normal heart sound, S2 normal heart sound and no murmurs GI normal to inspection, nondistended, normoactive bowel sounds, soft to palpation, non-tender and non-distended Extremity normal to inspection, full ROM and no clubbing, cyanosis or edema Neuro oriented x3, CN's II-XII intact bilaterally, moves all extremities and no focal motor deficits Sensorium / Orientation: awake and alert Coordination / Balance: [id number] test normal Motor Exam: strength 5/5 throughout Psych affect normal Results Lab / Micro Data Result Diagrams: 06/21/22 05:02 06/21/22 05:02 Labs: Laboratory Results - last 24 hr 06/20/22 12:05: WBC 7.7, RBC 2.30 L, Hgb 7.3 L, Hct 22.6 L, MCV 98.3 H, MCH 31.7, MCHC 32.3, RDW Std Deviation 50.0 H, RDW Coeff of Kandi 13.8, Plt Count 170, MPV 10.3, Immature Gran % (Auto) 0.800, Neut % (Auto) 61.0, Lymph % (Auto) 29.4, [place] % (Auto) 7.7, Eos % (Auto) 1.0, Baso % (Auto) 0.1, Absolute Neuts (auto) 4.7, Absolute Lymphs (auto) 2.26, Nucleated RBC % 0 06/20/22 12:05: PT 14.4, INR 1.2, APTT 28.4 06/20/22 12:05: Sodium 142, Potassium 4.4, Chloride 108 H, Carbon Dioxide 28.0, Anion Gap 6, BUN 29 H, Creatinine 1.11, Estim Creat Clear Calc 47.07, Est GFR (MDRD) Af Amer 81, Est GFR (MDRD) Non-Af 67, BUN/Creatinine Ratio 26.1 H, Glucose 106, Calcium 9.7, Total Bilirubin 0.60, AST 21, ALT 21, Alkaline Phosphatase 81, Total Protein 5.0 L, Albumin 2.6 L, Globulin 2.4, Albumin/Globulin Ratio 1.1, Lipase 70 L 06/20/22 13:10: Crossmatch See Detail Assessment & Plan Assessment/Plan (1) Anemia: (2) Orthostatic hypotension: (3) Rectal bleeding: PLAN: Plan #Rectal bleeding etiology is unclear. Hb is 7.3. has right total hip arthroplasty last week, and had been taking aspirin 81mg daily for DVT prophylaxis. admit to [facility] with IVF keep NPO consult general surgery start on IV pantoprazole 40mg bid transfuse with 2 units of PRBCs if Hb <7 #Orthostatic hypotension due to rectal bleeding management as above #Recent right total hip arthroplasty stable #Hyperlipidemia: on statin #Hypertension: on valsartan #Depression: on escitalopram DVT prophylaxis: SCDs GI prophylaxis; started on panoprazole IV o/a of rectal bleeding Code status:full code Patient counseled extensively about different types of CODE STATUS including full code, DNR CCA and DNR CCA. Patient elects to be full code. Total [id number] time 16 minutes. Charges/Coding Visit Charges Inpatient E&M: 40616 Init Hosp L3 Procedures Hospitalists Procedures: 82755 Advncd Care Plan 30 Min
--- NOTE | 2022-06-20 14:26 | NURSING ---
MED SURG KORROMMEL GI BLEED, ANEMIA REQUIRING TRANSFUSION
--- NOTE | 2022-06-20 15:56 | PCM.CONS.GEN ---
Assessment & Plan Assessment/Plan (1) Rectal bleeding: PLAN: The differential diagnosis for lower GI bleeding in elderly due to the gentleman would be a cervical ulcer, neoplasia, diverticular bleed, hemorrhoidal bleed. He should undergo colonoscopy to evaluate his lower GI tract. I will discuss this with patient's and family. (2) Anemia: PLAN: Patient was already anemic prior to him undergoing orthopedic surgery. This should be investigated with an upper and lower endoscopy to make sure there is no sign of neoplasia, angiodysplasia, peptic ulcer disease. Patient said he would think about having the test done. HPI Consult Data Date of Consult: 06/20/22 HPI Narrative Reason for Consultation: GI bleed HPI Narrative: PANCHO BERRY, is a 86 M who presented to the emergency room with a lower GI bleed. Patient underwent a total hip replacement on 06/15/2022. He stated on 06/17/2022 he began having some rectal bleeding. He was placed on aspirin. Therapy after he underwent a total hip replacement for DVT prophylaxis. His hemoglobin was 10.1 after surgery. When he came to be evaluated in the ED for lower GI bleeding and his hemoglobin was down to 7.1. Currently it is up to 7.3. On Monday he had some small stool but continued blood.? On Monday and Monday this was only 1 time each day.? On Monday he states that he had brown bowel movements but with bright red blood.? Today he states he had a bowel movement with very little blood.? He feels weeks when he stands and tries to walk.? From an orthopedic standpoint he states he is doing quite well.? He is not on any blood thinners.? He does take omeprazole daily but denies any upper abdominal discomfort or discomfort with eating. All other 16 review of systems are negative except as per body mentioned HPI. [facility] Medical History Anxiety Arthritis Cancer Depression Gastric reflux High cholesterol History of edema History of pain when walking History of steroid therapy Hypertension Non-smoker Prostate disease Shortness of breath on exertion Walker as ambulation aid Wears dentures Wears glasses Wears hearing aid Home Medications allopurinol 300 mg tablet 300 mg PO DAILY 12/31/15 [History Last Taken 06/20/22] doxazosin 8 mg tablet (Cardura) 16 mg PO DAILY HEART 12/31/15 [History Last Taken 06/20/22] simvastatin 20 mg tablet 20 mg PO QHS 12/31/15 [History Last Taken 06/20/22] calcium carbonate 500 mg calcium (1,250 mg) chewable tablet 1,000 mg PO TID PRN Indigestion 06/09/22 [History Last Taken 06/20/22 03:00] calcium carbonate 600 mg calcium (1,500 mg) tablet (Calcium) 900 mg PO DAILY SUPPLEMENT 06/09/22 [History Last Taken 06/20/22] cholecalciferol (vitamin D3) 25 mcg (1,000 unit) capsule (Vitamin D3) 25 mcg PO DAILY SUPPLEMENT 06/09/22 [History Last Taken 06/20/22] escitalopram oxalate 20 mg tablet (Lexapro) 20 mg PO DAILY 06/09/22 [History Last Taken 06/20/22] valsartan 320 mg tablet 320 mg PO QHS 06/09/22 [History Last Taken Unknown] ferrous sulfate 325 mg (65 mg iron) tablet 325 mg PO BID #60 tabs 06/17/22 [Rx Last Taken 06/20/22] folic acid 1 mg tablet 1 mg PO DAILY #30 tabs 06/17/22 [Rx Last Taken 06/20/22] aspirin 81 mg tablet,delayed release 81 mg PO DAILY 06/20/22 [History Last Taken 06/20/22] famotidine 20 mg tablet 20 mg PO DAILY 06/20/22 [History Last Taken 06/20/22] ondansetron HCl 4 mg tablet 4 mg PO Q8H PRN Nausea 06/20/22 [History Last Taken Unknown] oxycodone 5 mg tablet 5 - 10 mg PO Q4H PAIN 06/20/22 [History Last Taken Unknown] Allergy/AdvReac Type Severity Reaction Status Date / Time No Known Allergies Allergy Verified 06/20/22 11:25 Surgical History H/O total hip arthroplasty Hx of colonoscopy Hx of prostatectomy Hx of repair of left rotator cuff Hx of repair of right rotator cuff Hx of right inguinal hernia repair Hx of total knee arthroplasty Social History (Updated 06/20/22 @ 12:[address] David Abrams DO) Smoking Status: Never smoker substance use type: does not use ROS Constitutional Constitutional: Denies anorexia, chills, fatigue, fever(s), malaise or weakness Eyes Eyes: Denies change in vision ENT HEENT: Denies dysphagia, headache(s), nasal congestion or sore throat Respiratory/Chest Respiratory/Chest: Denies cough, dyspnea, hemoptysis, productive cough, shortness of breath at rest or shortness of breath with exertion Gastrointestinal Gastrointestinal: Reports hematochezia and melena; Denies abdominal pain, coffee ground emesis, constipation, diarrhea, dyspepsia, hematemesis, loose stools, nausea or vomiting Genitourinary Genitourinary: Denies burning urination, dysuria or hematuria Musculoskeletal Musculoskeletal: Denies arthralgias or back pain Neurologic Neurologic: Denies confusion, dizziness, focal weakness, headache(s), numbness, seizures or syncope Psychiatric Psychiatric: Denies anxiety Endocrine Endocrinology: Denies change in body appearance Hematologic/Lymphatic Hematologic/Lymphatic: Reports anemia; Denies easy bleeding or easy bruising Physical Exam Const alert, oriented x3 and no apparent distress General Appearance: cooperative HEENT normocephalic, head/scalp atraumatic, hearing grossly normal bilaterally and moist oral mucous membranes Mouth: oral and palatal mucosa normal Eyes PERRL, EOMs intact bilaterally and conjunctivae normal Neck no lymphadenopathy, supple, no JVD and no carotid bruits Resp normal respiratory effort, no retractions, no use of accessory muscles and clear to auscultation bilaterally Cardio regular rate, regular rhythm, S1 normal heart sound, S2 normal heart sound and no murmurs GI normal to inspection, nondistended, normoactive bowel sounds, soft to palpation, non-tender and non-distended Extremity normal to inspection, full ROM and no clubbing, cyanosis or edema Neuro oriented x3, CN's II-XII intact bilaterally, moves all extremities and no focal motor deficits Sensorium / Orientation: awake and alert Coordination / Balance: [id number] test normal Motor Exam: strength 5/5 throughout Psych affect normal Lab / Micro Data Result Diagrams: 06/20/22 12:05 06/20/22 12:05 Labs: Laboratory Results - last 24 hr 06/20/22 12:05: WBC 7.7, RBC 2.30 L, Hgb 7.3 L, Hct 22.6 L, MCV 98.3 H, MCH 31.7, MCHC 32.3, RDW Std Deviation 50.0 H, RDW Coeff of Kandi 13.8, Plt Count 170, MPV 10.3, Immature Gran % (Auto) 0.800, Neut % (Auto) 61.0, Lymph % (Auto) 29.4, [place]on % (Auto) 7.7, Eos % (Auto) 1.0, Baso % (Auto) 0.1, Absolute Neuts (auto) 4.7, Absolute Lymphs (auto) 2.26, Nucleated RBC % 0 06/20/22 12:05: PT 14.4, INR 1.2, APTT 28.4 06/20/22 12:05: Sodium 142, Potassium 4.4, Chloride 108 H, Carbon Dioxide 28.0, Anion Gap 6, BUN 29 H, Creatinine 1.11, Estim Creat Clear Calc 47.07, Est GFR (MDRD) Af Amer 81, Est GFR (MDRD) Non-Af 67, BUN/Creatinine Ratio 26.1 H, Glucose 106, Calcium 9.7, Total Bilirubin 0.60, AST 21, ALT 21, Alkaline Phosphatase 81, Total Protein 5.0 L, Albumin 2.6 L, Globulin 2.4, Albumin/Globulin Ratio 1.1, Lipase 70 L 06/20/22 13:10: Blood Type A POSITIVE, Antibody Screen NEGATIVE, Crossmatch See Detail Charges/Coding Visit Charges Inpatient E&M: 48716 Init Hosp L2
[2022-06-20] MEDS: 0.9% Normal Saline 1,000 ML 125 ML IV (16:26)
[2022-06-20] MEDS: 0.9% Saline Lock 10 ML Syringe IV (16:29)
[2022-06-20] MEDS: Polyethylene Glycol 3350 BOWEL PREP PO (19:48)
[2022-06-20] MEDS: Bisacodyl 5 MG Tablet 20 MG PO (19:48)
[2022-06-20] MEDS: Losartan Potassium 100 MG Tablet PO (21:39)
[2022-06-21] VITALS (16 sets, daily range): BP systolic 130–184; BP diastolic 58–73; PULSE 59–76; RESP 14–18; TEMP 36.4–37.4; O2SAT 97–100; BMI 26.7
--- NOTE | 2022-06-21 01:41 | NURSING ---
PT'S IVFS OF NS OFF SCHEDULE DUE TO BLOOD TRANSFUSION
[2022-06-21] MEDS: 0.9% Normal Saline 1,000 ML 125 ML IV (03:12)
[2022-06-21 05:10] LABS: Absolute Lymphocyte Count 3.04 X10^3/uL (0.83-4.51); Absolute Neutrophil Count 5.3 X10^3/uL (2.0-7.7); Basophil# 0.01 X10^3/uL; Basophil% 0.1 % (0-1); Eosinophil# 0.16 X10^3/uL; Eosinophils% 1.7 % (0-5); Hemoglobin 8.6 g/dL (13.0-16.5); Lymphocyte # 3.04 X10^3/ul (0.83-4.51); Lymphocyte % 32.3 % (19-41); Mean Corp Hgb Conc 31.9 g/dL (32-36); Mean Corpuscular Hgb 30.2 pg (27.0-32.0); Mean Corpuscular Volume 94.7 fL (80-94); Mean Platelet Vol. 9.7 fl (6.2-12.0); Monocyte# 0.79 X10^3/uL; Monocyte% 8.4 % (0-10); NRBC Flagged by Analyzer 0 % (0-5); Neutrophil % 56.4 % (47-70); Platelet Count 161 K/mm3 (150-450); RBC Distribution Width CV 14.9 % (11.6-14.6); RBC Distribution Width SD 52.3 fl (35.1-43.9); Red Blood Count 2.85 M/mm3 (4.6-6.2); White Blood Count 9.4 K/mm3 (4.4-11.0)
[2022-06-21 05:37] LABS: Anion Gap 4 (5-15); BUN 19 mg/dL (7-18); BUN/Creat Ratio 19.1 RATIO (10-20); Calcium,Total 8.9 mg/dL (8.5-10.1); Chloride 108 mmol/L (98-107); Creatinine, Serum 0.99 mg/dL (0.70-1.30); EST Glomerular Filtration Rate 76 mL/min (>60); Est Glom Filt Rate - Afr Amer 92 mL/min (>60); Estimated Creatinine Clearance 52.78 ml/min; Glucose 103 mg/dL (74-106); Sodium Level 139 mmol/L (136-145)
--- NOTE | 2022-06-21 06:00 | EKG12_ITS ---
Test Reason : PRE-OP Blood Pressure : / mmHG Vent. Rate : 082 BPM Atrial Rate : 082 BPM P-R Int : 156 ms QRS Dur : 084 ms QT Int : 376 ms P-R-T Axes : 051 -15 027 degrees QTc Int : 439 ms Sinus rhythm with Premature atrial complexes Leftward axis Poor R wave progression Confirmed by KARLA VALLEJO, PANCHO ([id number]), film editor ROC AYERS ([id number]) on 06/22/2022 11:18:20 AM Referred By: PETER Confirmed By:PANCHO ACOSTA MD
--- NOTE | 2022-06-21 06:40 | NURSING ---
notified Dr Richardson that pt stool this AM still dark brown. New order received.
--- NOTE | 2022-06-21 07:05 | NURSING ---
Pharmacy notified this RN that they are out of magnesium citrate - it is apparently on backorder - Dr Richardson made aware - order for miralax bowel prep.
--- NOTE | 2022-06-21 07:14 | PN.HOSP_ITS ---
Subjective Subjective Follow-up for GI bleed and severe anemia. Patient required 2 units PRBC, transfuse. No nausea or vomiting. Patient has rectal bleed. Hard of hearing. No abdominal pain. Objective Data Objective Data Vital Signs: Vital Signs Temp Pulse Resp BP Pulse Ox O2 Del Method 98.3 F 70 18 184/62 H 97 Room Air 06/21/22 05:43 06/21/22 05:54 06/21/22 05:43 06/21/22 05:43 06/21/22 05:43 06/21/22 05:43 Oxygen Delivery Method Room Air Weight: 175 lb 15.92 oz Body Mass Index (BMI) 26.7 Intake & Output: Intake and Output for Last 24 Hours 06/19/22 06/20/22 06/21/22 23:59 23:59 23:59 Intake Total 1670 / 3670 3000 / 3000 Balance 1670 / 3670 3000 / 3000 Lab / Micro Data Result Diagrams: 06/21/22 05:02 06/21/22 05:02 Labs: Laboratory Results - last 24 hr 06/20/22 12:05: WBC 7.7, RBC 2.30 L, Hgb 7.3 L, Hct 22.6 L, MCV 98.3 H, MCH 31.7, MCHC 32.3, RDW Std Deviation 50.0 H, RDW Coeff of Kandi 13.8, Plt Count 170, MPV 10.3, Immature Gran % (Auto) 0.800, Neut % (Auto) 61.0, Lymph % (Auto) 29.4, [place] % (Auto) 7.7, Eos % (Auto) 1.0, Baso % (Auto) 0.1, Absolute Neuts (auto) 4.7, Absolute Lymphs (auto) 2.26, Nucleated RBC % 0 06/20/22 12:05: PT 14.4, INR 1.2, APTT 28.4 06/20/22 12:05: Sodium 142, Potassium 4.4, Chloride 108 H, Carbon Dioxide 28.0, Anion Gap 6, BUN 29 H, Creatinine 1.11, Estim Creat Clear Calc 47.07, Est GFR (MDRD) Af Amer 81, Est GFR (MDRD) Non-Af 67, BUN/Creatinine Ratio 26.1 H, Glucose 106, Calcium 9.7, Total Bilirubin 0.60, AST 21, ALT 21, Alkaline Phosphatase 81, Total Protein 5.0 L, Albumin 2.6 L, Globulin 2.4, A lbumin/Globulin Ratio 1.1, Lipase 70 L 06/20/22 13:10: Blood Type A POSITIVE, Antibody Screen NEGATIVE, Crossmatch See Detail 06/21/22 05:02: WBC 9.4, RBC 2.85 L, Hgb 8.6 L, Hct 27.0 L, MCV 94.7 H, MCH 30.2, MCHC 31.9 L, RDW Std Deviation 52.3 H, RDW Coeff of Kandi 14.9 H, Plt Count 161, MPV 9.7, Immature Gran % (Auto) 1.100 H, Neut % (Auto) 56.4, Lymph % (Auto) 32.3, [place] % (Auto) 8.4, Eos % (Auto) 1.7, Baso % (Auto) 0.1, Absolute Neuts (auto) 5.3, Absolute Lymphs (auto) 3.04, Nucleated RBC % 0 06/21/22 05:02: Sodium 139, Potassium 4.0, Chloride 108 H, Carbon Dioxide 27.0, Anion Gap 4 L, BUN 19 H, Creatinine 0.99, Estim Creat Clear Calc 52.78, Est GFR (MDRD) Af Amer 92, Est GFR (MDRD) Non-Af 76, BUN/Creatinine Ratio 19.1, Glucose 103, Calcium 8.9 Physical Exam Narrative Seen and examined General: Alert, Oriented x3, Cooperative HEENT: Bilateral hearing loss, right more than left. Atraumatic, PERRLA, EOMI, Normocephalic Oral: No Gingival or Mucosal Lesions/ Ulcerations Neck: Supple, No JVD, Negative Carotid Bruits Lungs: Air entry diminished in bilateral lung bases. No crepitation/rhonchi Cardiovascular: Regular rate, Regular Rhythm, Normal S1, Normal S2, No murmurs Abdomen: Bowel Sounds Present, Soft, Non Tender, Non-Distended : No renal angle tenderness. No suprapubic tenderness. Extremities: No edema, Capillary Refill Less than 3 Seconds Skin: No rashes, No breakdown Musculoskeletal: No Tenderness to Palpation of Joints or Extremities, muscle strength 4+/5 at major joints Neurological: Cranial nerves II-XII grossly intact, DTR 2+/4 and Symmetrical, Psych/Mental Status: Normal Affect, Appropriate. Assessment & Plan Assessment/Plan (1) Anemia: (2) Orthostatic hypotension: (3) Rectal bleeding: PLAN: Plan #Acute severe upper GI bleed: Patient admitted with rectal bleed. EGD shows 1 oozing duodenal ulcer with visible vessel treated with bipolar cautery and single bleeding angiodysplastic lesion in the stomach treated with heater probe. Sucralfate 1 g p.o. 4 times daily for 4 weeks. PPI twice daily. No NSAIDs or aspirin. Patient admitting hemoglobin was 7.3. Colonoscopy reported diverticulosis in the rectosigmoid, sigmoid and descending colon. one 5 mm polyp in TCU removed. Nonbleeding internal hemorrhoids. Acute severe anemia on chronic normocytic anemia due to upper GI bleed: Patient admitting hemoglobin was 7.3 g. 2 units of PRBC transfusion and repeat hemoglobin 8.6 g%. Patient baseline hemoglobin runs around 10 g% as per 06/10/2022. Patient was adequately resuscitated with IV fluids and PRBC transfusion. Rest as mentioned above. #Orthostatic hypotension due to rectal bleeding No dizziness. Repeat orthostatic blood pressure tomorrow AM. 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 Eliazbeth on 06/15/2022. Surgical scar well-healed. Dressing is dry. #Hyperlipidemia: on statin #Hypertension: on valsartan #Depression: on escitalopram DVT prophylaxis: SCDs GI prophylaxis; started on panoprazole IV o/a of rectal bleeding Code status:full code * Patient counseled extensively about different types of CODE STATUS including full code, DNR CCA and DNR CCA. Patient elects to be full code. Total time of the visit including total time spent in counseling or coordination of care, (more than 50% of the total time, spent in obtaining medical information from nurses and other ancillary care providers,explaining to the patient about labs, imaging, diagnosis and management of active complex medical conditions), discussion with client relationship consultant, review of labs and imaging is 40 minutes. Charges/Coding Visit Charges Inpatient E&M: 62688 [facility] Hosp L3
[2022-06-21] MEDS: Calcium (Elemental) 500 MG Tablet 1000 MG PO (08:03)
[2022-06-21] MEDS: Allopurinol 300 MG Tablet PO (08:03)
[2022-06-21] MEDS: Escitalopram Oxalate 20 MG Tablet PO (08:03)
[2022-06-21] MEDS: Doxazosin 4 MG Tablet 16 MG PO (08:03)
[2022-06-21] MEDS: Folic Acid 1 MG Tablet PO (08:03)
[2022-06-21] MEDS: Cholecalciferol (VIT D3) 25 MCG TABLET (1,000 UNITS) PO (08:03)
[2022-06-21] MEDS: Polyethylene Glycol 3350 BOWEL PREP PO (08:04)
[2022-06-21] MEDS: Acetaminophen 325 MG Tablet 650 MG PO ×2 (08:08→20:44)
--- NOTE | 2022-06-21 11:26 | CASEMGMT ---
ANDIE PRESLEY Assessment: Face to Face with pt for initial transition planning/care coordination assessment. RN SAKINA introduced self and role at [facility], pt voices understanding and consents to assessment. Pt is A/O x4 and answers all questions appropriately at this time. Care providers, pharmacy, and demographics verified/updated. Dtr present in room for most of assessment. Admitting Dx: lower GIB PCP:Arminda Specialists:jessica Elizabeth Pharmacy: [facility] Insurance: Lizzy JAIME Prescription Benefit: yes LW/HPOA: Pt states he has a LW/DPOA and his is his DPOA. Pt dtr asked for fax number to floor and will have documents faxed in. Provided fax number. LNOK: Bernadette Gutiérrez, Living Arrangements: Pt lives with in a single story house with 1 step to enter or an entrance without steps. Pt reports being I in ADL's and denies concerns at home. Transportation: Pt is not driving now d/t surgery. Pt dtr transports him to [facility]. DME/HHC/SNF: Pt has a FWW and shower chair at home. Pt denies hx of HHC or SNF stays. Pt states no concerns with going home at time of dc. Pt had THR last Monday and states he was scheduled outpt therapy at [facility] on Monday but did not make it d/t being ill. Therapy is ordered as inpatient. Pt states he thinks once he gets home he will be able to get to outpt therapy. He denies need for HHC therapy. Pt states no further concerns/needs. CM to follow. Advised pt to ask CM if any further question/concerns/needs arise, voices understanding. Pt Goal: Home with outpt therapy Plan: Home with outpt therapy
[2022-06-21] MEDS: Ferrous Sulfate 325 MG Tablet PO ×2 (11:48→17:09)
--- NOTE | 2022-06-21 12:50 | CHAPLAIN ---
Type of Pastoral Visit _x__ Initial Visit ___ Follow-up Visit ___ On-call Visit ___ General Patient Visit ___ Spiritual Assessment ___ Family Conference ___ Bereavement ___ Rapid Response ___ Code Blue ___ Other (describe below) Pastoral Care Referral From _x__ Patient ___ Family ___ Nurse ___ Physician ___ Team Primary Care Physician ___ Machine Stitcher ___ Other (describe below) Sacrament/Intervention _x__ Active listening ___ Anointing ___ Rastafari ___ Bereavement ___ Communion ___ Tamy exploration ___ ___ Life review _x__ Prayer ___ Reconciliation ___ Sacrament of Sick _x__ Supportive presence ___ Wedding ___ Other (describe below) Pastoral Comments patient getting ready for a surgical procedure; pt welcomes prayer support; daughter is also with pt; pt explains his current need in relation to his previous surgery one week ago; 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
--- NOTE | 2022-06-21 13:37 | CASEMGMT ---
Social Work Per Ana GILLESPIE's Assessment note, Pt states he has a LW/DPOA and his is his DPOA. Pt dtr asked for fax number to floor and will have documents faxed in. JOSE Ferrer
[2022-06-21] MEDS: Lactated Ringers 1,000 ML 15 ML IV (14:30)
--- NOTE | 2022-06-21 15:16 | NURSING ---
1430, pt off unit via bed for scheduled procedures
--- NOTE | 2022-06-21 15:30 | COLBX_PTH ---
PATIENT: PANCHO BERRY LOC: MS3 U#:[id number] AGE/SX: 86/M ROOM: [facility] [place] RE06/20/[address]: Dr. Vazquez Alcantar MD : 1935 BED: 1 DIS: 06/22/2022 SPEC #: [id number] RECD: 06/21/22 16:27 STATUS: ARIELLE HORAN #: [id number] CAITLYN: 06/21/22 15:[address]: Yariel Richardson DEPT: SURGICAL PATHOLOGY RECD BY: Mela Tomlinson ENTERED: 06/22/22 07:49 SP TYPE: COLON BX OTHR DR: MD Dr. Vazquez Reza MD Dr. Robert Lindsay, DO Tissues: Transverse colon Procedures: Surgery Specimen Level IV HEADER OPERATION: Colonoscopy, EGD ([facility] [place]) PRE-OP DIAGNOSIS: Rectal bleeding, anemia TISSUE SUBMITTED: Transverse colon polyp MICROSCOPIC DIAGNOSIS Transverse colon polyp, biopsy: Fragments of hyperplastic polyp. YAYA:cam 06/23/2022 MICROSCOPIC DESCRIPTION Slides are reviewed. GROSS DESCRIPTION Received in fixative is one container labeled with the patient's name and designated transverse colon polyp. The specimen consists of multiple irregular fragments of light huffman soft tissue that in aggregate measure 0.8 x 0.5 x 0.3 cm. The specimen is totally submitted in one cassette. / YAYA:cam 06/22/2022 TC:1 CPT: 84423
--- NOTE | 2022-06-21 16:25 | OP.EGD_ITS ---
Patient Name: Cecilio Gutiérrez Procedure Date: 06/21/2022 3:49 PM Date of : 1935 Age: 86 Procedure: Upper GI endoscopy Indications: Iron deficiency anemia, Hematochezia Providers: Yariel Richardson DO Medicines: Monitored Anesthesia Care Patient Profile: This is an 86 year old male. Refer to note in patient chart for documentation of history and physical. Patient has symptoms. Complications: No immediate complications. Procedure: Pre-Anesthesia Assessment: - Prior to the procedure, a History and Physical was performed, and patient medications and allergies were reviewed. The risks and benefits of the procedure and the sedation options and risks were discussed with the patient. All questions were answered and informed consent was obtained. Patient identification and proposed procedure were verified by the physician in the pre-procedure area. Mental Status Examination: alert and oriented. Airway Examination: normal oropharyngeal airway and neck mobility. Respiratory Examination: clear to auscultation. CV Examination: normal. Prophylactic Antibiotics: The patient does not require prophylactic antibiotics. Prior Anticoagulants: The patient has taken no previous anticoagulant or antiplatelet agents. ASA Grade Assessment: II - A patient with mild systemic disease. After reviewing the risks and benefits, the patient was deemed in satisfactory condition to undergo the procedure. The anesthesia plan was to use monitored anesthesia care (MAC). Immediately prior to administration of medications, the patient was re-assessed for adequacy to receive sedatives. The heart rate, respiratory rate, oxygen saturations, blood pressure, adequacy of pulmonary ventilation, and response to care were monitored throughout the procedure. The physical status of the patient was re-assessed after the procedure. After obtaining informed consent, the endoscope was passed under direct vision. Throughout the procedure, the patient's blood pressure, pulse, and oxygen saturations were monitored continuously. The was introduced through the mouth, and advanced to the second part of duodenum. The upper GI endoscopy was accomplished without difficulty. The patient tolerated the procedure well. Scope In: 3:49:49 PM Scope Out: 3:57:24 PM Total Procedure Duration Time 0 hours 7 minutes 35 seconds Findings: No gross lesions were noted in the entire esophagus. A large hiatal hernia was present. One oozing cratered duodenal ulcer with a visible vessel was found in the duodenal bulb. The lesion was 8 mm in largest dimension. Coagulation for hemostasis using bipolar probe was successful. Estimated blood loss was minimal. A single 5 mm bleeding angiodysplastic lesion was found on the lesser curvature of the stomach. Coagulation for hemostasis using heater probe was successful. Estimated blood loss was minimal. Impression: - No gross lesions in esophagus. - Large hiatal hernia. - One oozing duodenal ulcer with a visible vessel. Treated with bipolar cautery. - A single bleeding angiodysplastic lesion in the stomach. Treated with a heater probe. - No specimens collected. Recommendation: - Written discharge instructions were provided to the patient. - The signs and symptoms of potential delayed complications were discussed with the patient. - Patient has a contact number available for emergencies. - Return to normal activities tomorrow. - Resume previous diet. - [facility]. - Full liquid diet today. - No aspirin, ibuprofen, naproxen, or other non-steroidal anti-inflammatory drugs for 5 days. - Use sucralfate tablets 1 gram PO QID for 4 weeks. Procedure Code(s): --- Professional --- 97641, Esophagogastroduodenoscopy, flexible, transoral; with control of bleeding, any method CPT copyright 2017 [employer]. All rights reserved. The codes documented in this report are preliminary and upon hog raiser review may be revised to meet current compliance requirements. Yariel Richardson DO 06/21/2022 4:25:20 PM This report has been signed electronically. Number of Addenda: 0 Note Initiated On: 06/21/2022 3:49 PM
--- NOTE | 2022-06-21 16:26 | OP.CCLET_ITS ---
06/21/2022 Dany Hilliard [address] [place] [address] Re : Upper GI endoscopy procedure for Cecilio Gutiérrez Dear Dr. Hilliard This procedure was performed on Tuesday, June 21, 2022. My impressions and recommendations are as follows: Impressions : - No gross lesions in esophagus. - Large hiatal hernia. - One oozing duodenal ulcer with a visible vessel. Treated with bipolar cautery. - A single bleeding angiodysplastic lesion in the stomach. Treated with a heater probe. - No specimens collected. Recommendations : - Written discharge instructions were provided to the patient. - The signs and symptoms of potential delayed complications were discussed with the patient. - Patient has a contact number available for emergencies. - Return to normal activities tomorrow. - Resume previous diet. - [facility]. - Full liquid diet today. - No aspirin, ibuprofen, naproxen, or other non-steroidal anti-inflammatory drugs for 5 days. - Use sucralfate tablets 1 gram PO QID for 4 weeks. My findings are described in the full procedure note, which is enclosed. If I can be of further assistance, please feel free to contact me at . Sincerely, Yariel Richardson, 06/21/2022 4:25:20 PM This report has been signed electronically.
--- NOTE | 2022-06-21 16:29 | OP.COLON_ITS ---
Patient Name: Cecilio Gutiérrez Procedure Date: 06/21/2022 3:57 PM Date of : 1935 Age: 86 Procedure: Colonoscopy Indications: Hematochezia Providers: Yariel Richardson DO Medicines: Monitored Anesthesia Care Patient Profile: This is an 86 year old male. Refer to note in patient chart for documentation of history and physical. Patient has symptoms. Last Colonoscopy: several years ago. Complications: No immediate complications. Procedure: Pre-Anesthesia Assessment: - Prior to the procedure, a History and Physical was performed, and patient medications and allergies were reviewed. The risks and benefits of the procedure and the sedation options and risks were discussed with the patient. All questions were answered and informed consent was obtained. Patient identification and proposed procedure were verified by the physician in the pre-procedure area. Mental Status Examination: alert and oriented. Airway Examination: normal oropharyngeal airway and neck mobility. Respiratory Examination: clear to auscultation. CV Examination: normal. Prophylactic Antibiotics: The patient does not require prophylactic antibiotics. Prior Anticoagulants: The patient has taken no previous anticoagulant or antiplatelet agents. ASA Grade Assessment: II - A patient with mild systemic disease. After reviewing the risks and benefits, the patient was deemed in satisfactory condition to undergo the procedure. The anesthesia plan was to use monitored anesthesia care (MAC). Immediately prior to administration of medications, the patient was re-assessed for adequacy to receive sedatives. The heart rate, respiratory rate, oxygen saturations, blood pressure, adequacy of pulmonary ventilation, and response to care were monitored throughout the procedure. The physical status of the patient was re-assessed after the procedure. After I obtained informed consent, the scope was passed under direct vision. Throughout the procedure, the patient's blood pressure, pulse, and oxygen saturations were monitored continuously. The Colonoscope was introduced through the anus and advanced to the terminal ileum. The colonoscopy was performed without difficulty. The patient tolerated the procedure well. The quality of the bowel preparation was adequate. Scope In: 4:01:15 PM Scope Withdrawal Time 0 hours 10 minutes 23 seconds Scope Out: 4:16:54 PM Total Procedure Duration Time 0 hours 15 minutes 39 seconds Findings: Hemorrhoids were found on perianal exam. Multiple small and large-mouthed diverticula were found in the recto-sigmoid colon, sigmoid colon and descending colon. A 5 mm polyp was found in the transverse colon. The polyp was sessile. The polyp was removed with a hot snare. Resection and retrieval were complete. Verification of patient identification for the specimen was done. Estimated blood loss was minimal. Non-bleeding internal hemorrhoids were found during retroflexion. The hemorrhoids were moderate and Grade II (internal hemorrhoids that prolapse but reduce spontaneously). Impression: - Hemorrhoids found on perianal exam. - Diverticulosis in the recto-sigmoid colon, in the sigmoid colon and in the descending colon. - One 5 mm polyp in the transverse colon, removed with a hot snare. Resected and retrieved. - Non-bleeding internal hemorrhoids. Recommendation: - Repeat colonoscopy is not recommended due to current age (66 years or older). - No aspirin, ibuprofen, naproxen, or other non-steroidal anti-inflammatory drugs for 5 days after polyp removal. Procedure Code(s): --- Professional --- 14121, Colonoscopy, flexible; with removal of tumor(s), polyp(s), or other lesion(s) by snare technique CPT copyright 2017 [employer]. All rights reserved. The codes documented in this report are preliminary and upon workers compensation manager review may be revised to meet current compliance requirements. Yariel Richardson DO 06/21/2022 4:29:19 PM This report has been signed electronically. Number of Addenda: 0 Note Initiated On: 06/21/2022 3:57 PM
--- NOTE | 2022-06-21 16:30 | OP.CCLET_ITS ---
06/21/2022 Dany Hilliard [address] [place] [address] Re : Colonoscopy procedure for Cecilio Gutiérrez Dear Dr. Hilliard This procedure was performed on Tuesday, June 21, 2022. My impressions and recommendations are as follows: Impressions : - Hemorrhoids found on perianal exam. - Diverticulosis in the recto-sigmoid colon, in the sigmoid colon and in the descending colon. - One 5 mm polyp in the transverse colon, removed with a hot snare. Resected and retrieved. - Non-bleeding internal hemorrhoids. Recommendations : - Repeat colonoscopy is not recommended due to current age (66 years or older). - No aspirin, ibuprofen, naproxen, or other non-steroidal anti-inflammatory drugs for 5 days after polyp removal. My findings are described in the full procedure note, which is enclosed. If I can be of further assistance, please feel free to contact me at . Sincerely, Yariel Richardson, 06/21/2022 4:29:19 PM This report has been signed electronically.
[2022-06-21] MEDS: Sucralfate 1 GM Tablet PO (17:09)
[2022-06-21] MEDS: Ondansetron ODT 4 MG Tablet PO (20:41)
[2022-06-21] MEDS: Losartan Potassium 100 MG Tablet PO (20:45)
[2022-06-21] MEDS: Atorvastatin Calcium 10 MG Tablet PO (20:46)
[2022-06-22 02:47] VITALS: BP 155/74; PULSE 94; RESP 16; TEMP 36.8; O2SAT 98
[2022-06-22 03:29] VITALS: PULSE 55
[2022-06-22 05:21] LABS: Absolute Lymphocyte Count 2.89 X10^3/uL (0.83-4.51); Absolute Neutrophil Count 5.7 X10^3/uL (2.0-7.7); Basophil# 0.02 X10^3/uL; Basophil% 0.2 % (0-1); Eosinophil# 0.18 X10^3/uL; Eosinophils% 1.8 % (0-5); Hematocrit 27.4 % (40-54); Hemoglobin 8.8 g/dL (13.0-16.5); Lymphocyte # 2.89 X10^3/ul (0.83-4.51); Lymphocyte % 29.6 % (19-41); Mean Corp Hgb Conc 32.1 g/dL (32-36); Mean Corpuscular Hgb 30.4 pg (27.0-32.0); Mean Corpuscular Volume 94.8 fL (80-94); Mean Platelet Vol. 9.9 fl (6.2-12.0); Monocyte# 0.84 X10^3/uL; Monocyte% 8.6 % (0-10); NRBC Flagged by Analyzer 0 % (0-5); Neutrophil # 5.68 X10^3/uL (2.7-7.7); Neutrophil % 58.3 % (47-70); Platelet Count 171 K/mm3 (150-450); RBC Distribution Width CV 14.5 % (11.6-14.6); RBC Distribution Width SD 50.1 fl (35.1-43.9); Red Blood Count 2.89 M/mm3 (4.6-6.2); White Blood Count 9.8 K/mm3 (4.4-11.0)
[2022-06-22 05:45] LABS: Anion Gap 6 (5-15); BUN 13 mg/dL (7-18); BUN/Creat Ratio 13.5 RATIO (10-20); Calcium,Total 8.9 mg/dL (8.5-10.1); Chloride 109 mmol/L (98-107); Creatinine, Serum 0.96 mg/dL (0.70-1.30); EST Glomerular Filtration Rate 79 mL/min (>60); Est Glom Filt Rate - Afr Amer 96 mL/min (>60); Estimated Creatinine Clearance 54.43 ml/min; Glucose 108 mg/dL (74-106); Potassium 4.1 mmol/L (3.5-5.1); Sodium Level 141 mmol/L (136-145)
[2022-06-22] MEDS: Sucralfate 1 GM Tablet PO (06:06)
[2022-06-22 07:05] VITALS: O2SAT 95
--- NOTE | 2022-06-22 07:56 | DCINST_ITS ---
Discharge Instructions Diet Discharge Diet: Soft diet (for 3 days then resume regular diet) Activity Discharge Activity: Return to Normal Activity and May Not Drive Weight Bearing Status: Weight bearing as tolerated Dressing / Incision Call your doctor if you observe: Fever of 101 or Higher, Coldness, Increased Pain, Numbness or Tingling, Change in Color, Inability to urinate, Inability to have a bowel movement, Shortness of breath, Dizziness, Fainting spells, Swelling in the ankles, Chest pain, Prolonged hiccupping, Increased palpitations (irregular heartbeat), Calf discomfort and Uncontrolled pain Follow Up Care Test Results: Test results from this visit will be discussed in further detail at your follow- up appointment, if applicable. Discharge Plan Admission Admit Date/Time: 06/20/22 14:22 Primary Reason for Your Visit: Acute acute upper and lower GI bleed Attending Provider: Vazquez Alcantar Primary Care Provider: Dany Hilliard Consulting Providers: Liane Cardona Discharge Orders/Prescriptions Prescriptions: New sucralfate 1 gram Tablet 1 g PO 4X/DAY Qty: 120 0RF pantoprazole [Protonix] 40 mg tablet,delayed release (DR/EC) 40 mg PO BID Qty: 60 2RF Rx Instructions: advised TWICE DAILY FOR 4 weeks and then once daily ascorbic acid (vitamin C) 500 mg tablet 500 mg PO BID Qty: 60 0RF Continued doxazosin [Cardura] 8 MG tablet 16 mg PO DAILY simvastatin 20 MG tablet 20 mg PO QHS allopurinol 300 MG tablet 300 mg PO DAILY Label Comments: GOUT calcium carbonate [Calcium 600] 600 mg calcium (1,500 mg) Tablet 900 mg PO DAILY valsartan 320 mg Tablet 320 mg PO QHS calcium carbonate 500 mg calcium (1,250 mg) Tablet,Chewable 1,000 mg PO TID PRN (Reason: Indigestion) cholecalciferol (vitamin D3) [Vitamin D3] 25 mcg (1,000 unit) Capsule 25 mcg PO DAILY escitalopram oxalate [Lexapro] 20 mg Tablet 20 mg PO DAILY folic acid 1 mg tablet 1 mg PO DAILY Qty: 30 0RF ondansetron HCl 4 mg tablet 4 mg PO Q8H PRN (Reason: Nausea) Label Comments: take 1 tablet by mouth every 8 hours if needed for nausea oxycodone 5 mg tablet 5 - 10 mg PO Q4H Label Comments: take 1 to 2 tablets by mouth every 4 hours Changed ferrous sulfate 325 mg (65 mg iron) tablet 325 mg PO DAILY Qty: 90 0RF Held aspirin 81 mg Tablet,Delayed Release (Dr/Ec) 81 mg PO DAILY Hold Instructions: Hold for 5 days until 06/26/2022. Discontinued famotidine 20 mg tablet 20 mg PO DAILY Label Comments: take 1 tablet by mouth daily Referrals / Follow Up: Yariel Richardson DO [Med Staff - Active Staff] - Within 2 Weeks (FOR GI Bleed) Dany Hilliard DO [Primary Care Provider] - Disposition Disposition (needs filled in before D/C Order can be placed): Home, Self Care
[2022-06-22 08:00] VITALS: PULSE 82
[2022-06-22] MEDS: Allopurinol 300 MG Tablet PO (08:28)
[2022-06-22] MEDS: Cholecalciferol (VIT D3) 25 MCG TABLET (1,000 UNITS) PO (08:28)
[2022-06-22] MEDS: Calcium (Elemental) 500 MG Tablet 1000 MG PO (08:28)
[2022-06-22] MEDS: Escitalopram Oxalate 20 MG Tablet PO (08:28)
[2022-06-22] MEDS: Doxazosin 4 MG Tablet 16 MG PO (08:28)
[2022-06-22] MEDS: Folic Acid 1 MG Tablet PO (08:28)
[2022-06-22 08:30] VITALS: BP 202/92; PULSE 66; RESP 14; TEMP 37; O2SAT 95
--- NOTE | 2022-06-22 09:37 | PCM.DC.SUM ---
Providers Date of Admission: 06/20/22 Date of Discharge: 06/22/22 Primary Care Physician: Dr. Dany Hilliard, Consultations 06/20/22 15:28 Consult: Gastroenterology Routine Consulting Provider: [facility] Reason for Consult: lower GI bleed EMERGENT Consult: No MD Notified: Yes Date Notified: 06/20/22 Time Notified: 14:24 Method of Notification: Text Reason For Visit: LOWER GI BLEED Diagnosis Discharge Diagnosis (1) Anemia: Status: Acute Code(s): D64.9 - Anemia, unspecified (2) Orthostatic hypotension: Status: Acute Code(s): I95.1 - Orthostatic hypotension (3) Rectal bleeding: Status: Acute Code(s): K62.5 - Hemorrhage of anus and rectum Medications at Discharge Home Medications allopurinol 300 mg tablet 300 mg PO DAILY 12/31/15 doxazosin 8 mg tablet (Cardura) 16 mg PO DAILY HEART 12/31/15 simvastatin 20 mg tablet 20 mg PO QHS 12/31/15 calcium carbonate 500 mg calcium (1,250 mg) chewable tablet 1,000 mg PO TID PRN Indigestion 06/09/22 calcium carbonate 600 mg calcium (1,500 mg) tablet (Calcium) 900 mg PO DAILY SUPPLEMENT 06/09/22 cholecalciferol (vitamin D3) 25 mcg (1,000 unit) capsule (Vitamin D3) 25 mcg PO DAILY SUPPLEMENT 06/09/22 escitalopram oxalate 20 mg tablet (Lexapro) 20 mg PO DAILY 06/09/22 valsartan 320 mg tablet 320 mg PO QHS 06/09/22 folic acid 1 mg tablet 1 mg PO DAILY #30 tabs 06/17/22 aspirin 81 mg tablet,delayed release 81 mg PO DAILY 06/20/22 ondansetron HCl 4 mg tablet 4 mg PO Q8H PRN Nausea 06/20/22 oxycodone 5 mg tablet 5 - 10 mg PO Q4H PAIN 06/20/22 ascorbic acid (vitamin C) 500 mg tablet 500 mg PO BID #60 tabs 06/22/22 ferrous sulfate 325 mg (65 mg iron) tablet 325 mg PO DAILY #90 tabs 06/22/22 pantoprazole 40 mg tablet,delayed release (Protonix) 40 mg PO BID #60 tabs 06/22/22 sucralfate 1 gram tablet 1 g PO 4X/DAY #120 tabs 06/22/22 Hospital Course Summary of Care Provided Hospital Course: This is a 86-year-old, gentleman was admitted with rectal bleed started on postop day 2 after he had a total hip replacement on 06/15/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 Elizabeth. Over next several days his rectal bleeding continued to persist and worsen therefore admitted with severe anemia. #Acute severe upper and lower GI bleed: Patient admitted with rectal bleed. EGD shows 1 oozing duodenal ulcer with visible vessel treated with bipolar cautery and single bleeding angiodysplastic lesion in the stomach treated with heater probe. Sucralfate 1 g p.o. 4 times daily for 4 weeks. PPI twice daily. No NSAIDs or aspirin. Patient admitting hemoglobin was 7.3. Colonoscopy reported diverticulosis in the rectosigmoid, sigmoid and descending colon. one 5 mm polyp in TC removed. GI of the impression that patient had both upper and lower GI bleed, lower from diverticular bleed. Nonbleeding internal hemorrhoids. 06/22: Repeat hemoglobin 8.8 g in the morning today. Platelet count 271,000. 2. Acute severe anemia on chronic normocytic anemia due to upper GI bleed: Patient admitting hemoglobin was 7.3 g. 2 units of PRBC transfusion and repeat hemoglobin 8.6 g%. Patient baseline hemoglobin runs around 10 g% as per 06/10/2022. Patient was adequately resuscitated with IV fluids and PRBC transfusion. Rest as mentioned above. #Orthostatic hypotension due to rectal bleeding No dizziness. Orthostatic blood pressure showed dropped from 130 systolic to 117 on standing but no significant change in heart rate. 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 Elizabeth on 06/15/2022. Surgical scar well-healed. Dressing is dry. #Hyperlipidemia: on statin #Hypertension: on valsartan #Depression: on escitalopram DVT prophylaxis: SCDs GI prophylaxis; started on panoprazole IV o/a of rectal bleeding Code status:full code Patient counseled extensively about different types of CODE STATUS including full code, DNR CCA and DNR CCA. Patient elects to be full code. Discharge medication reconciliation done. Discharge follow-up instructions completed. Discharge process discussed with the patient and all questions were answered to patient's satisfaction. Discharged on Protonix, Carafate, ascorbic acid. Advised to hold baby aspirin 81 mg twice daily for 5 days. Discharge meds discussed with rotor blade installer. Prescriptions sent to the patient's preferred pharmacy. Total time spent, exact 35 minutes on discharge meds reconciliation, examination, coordination of care with nurses and ancillary staff, review of imaging and blood test and discussion with the patient on follow-up instructions. Physical Exam Narrative Seen and examined on the day of discharge. No further rectal bleed. General: Alert, Oriented x3, Cooperative HEENT: Bilateral hearing loss, right more than left. Uses hearing aid. Atraumatic, PERRLA, EOMI, Normocephalic Oral: No Gingival or Mucosal Lesions/ Ulcerations Neck: Supple, No JVD, Negative Carotid Bruits Lungs: Air entry diminished in bilateral lung bases. No crepitation/rhonchi Cardiovascular: Regular rate, Regular Rhythm, Normal S1, Normal S2, No murmurs Abdomen: Bowel Sounds Present, Soft, Non Tender, Non-Distended : No renal angle tenderness. No suprapubic tenderness. Extremities: No edema, Capillary Refill Less than 3 Seconds Skin: No rashes, No breakdown Musculoskeletal: No Tenderness to Palpation of Joints or Extremities, muscle strength 4+/5 at major joints Neurological: Cranial nerves II-XII grossly intact, DTR 2+/4 and Symmetrical, Psych/Mental Status: Normal Affect, Appropriate. Weight / BMI Weight Weight: 175 lb 15.92 oz Body Mass Index (BMI) 26.7 ABG / Lab / Microbiology Data Result Diagrams: 06/22/22 04:13 06/22/22 04:13 Laboratory: Laboratory Results - last 24 hr 06/22/22 04:13: WBC 9.8, RBC 2.89 L, Hgb 8.8 L, Hct 27.4 L, MCV 94.8 H, MCH 30.4, MCHC 32.1, RDW Std Deviation 50.1 H, RDW Coeff of Kandi 14.5, Plt Count 171, MPV 9.9, Immature Gran % (Auto) 1.500 H, Neut % (Auto) 58.3, Lymph % (Auto) 29.6, [place] % (Auto) 8.6, Eos % (Auto) 1.8, Baso % (Auto) 0.2, Absolute Neuts (auto) 5.7, Absolute Lymphs (auto) 2.89, Nucleated RBC % 0 06/22/22 04:13: Sodium 141, Potassium 4.1, Chloride 109 H, Carbon Dioxide 26.0, Anion Gap 6, BUN 13, Creatinine 0.96, Estim Creat Clear Calc 54.43, Est GFR (MDRD) Af Amer 96, Est GFR (MDRD) Non-Af 79, BUN/Creatinine Ratio 13.5, Glucose 108 H, Calcium 8.9 D/C Instructions Discharge Diet: Soft diet (for 3 days then resume regular diet) Weight Bearing Status: Weight bearing as tolerated Call your doctor if you observe: Fever of 101 or Higher, Coldness, Increased Pain, Numbness or Tingling, Change in Color, Inability to urinate, Inability to have a bowel movement, Shortness of breath, Dizziness, Fainting spells, Swelling in the ankles, Chest pain, Prolonged hiccupping, Increased palpitations (irregular heartbeat), Calf discomfort and Uncontrolled pain Meaningful Use Info Meaningful Use Diagnoses (Choose all that apply): None applicable Discharge Plan Admission Admit Date/Time: 06/20/22 14:22 Primary Reason for Your Visit: Acute acute upper and lower GI bleed Attending Provider: Vazquez Alcantar Primary Care Provider: Dany Hilliard Consulting Providers: Liane Cardona Discharge Orders/Prescriptions Prescriptions: New sucralfate 1 gram Tablet 1 g PO 4X/DAY Qty: 120 0RF pantoprazole [Protonix] 40 mg tablet,delayed release (DR/EC) 40 mg PO BID Qty: 60 2RF Rx Instructions: advised TWICE DAILY FOR 4 weeks and then once daily ascorbic acid (vitamin C) 500 mg tablet 500 mg PO BID Qty: 60 0RF Continued doxazosin [Cardura] 8 MG tablet 16 mg PO DAILY simvastatin 20 MG tablet 20 mg PO QHS allopurinol 300 MG tablet 300 mg PO DAILY Label Comments: GOUT calcium carbonate [Calcium 600] 600 mg calcium (1,500 mg) Tablet 900 mg PO DAILY valsartan 320 mg Tablet 320 mg PO QHS calcium carbonate 500 mg calcium (1,250 mg) Tablet,Chewable 1,000 mg PO TID PRN (Reason: Indigestion) cholecalciferol (vitamin D3) [Vitamin D3] 25 mcg (1,000 unit) Capsule 25 mcg PO DAILY escitalopram oxalate [Lexapro] 20 mg Tablet 20 mg PO DAILY folic acid 1 mg tablet 1 mg PO DAILY Qty: 30 0RF ondansetron HCl 4 mg tablet 4 mg PO Q8H PRN (Reason: Nausea) Label Comments: take 1 tablet by mouth every 8 hours if needed for nausea oxycodone 5 mg tablet 5 - 10 mg PO Q4H Label Comments: take 1 to 2 tablets by mouth every 4 hours Changed ferrous sulfate 325 mg (65 mg iron) tablet 325 mg PO DAILY Qty: 90 0RF Held aspirin 81 mg Tablet,Delayed Release (Dr/Ec) 81 mg PO DAILY Hold Instructions: Hold for 5 days until 06/26/2022. Discontinued famotidine 20 mg tablet 20 mg PO DAILY Label Comments: take 1 tablet by mouth daily Referrals / Follow Up: Yariel Richardson DO [Med Staff - Active Staff] - Within 2 Weeks (FOR GI Bleed) Dany Hilliard DO [Primary Care Provider] - Disposition Disposition (needs filled in before D/C Order can be placed): Home, Self Care Charges/Coding Visit Charges Inpatient E&M: 34864 Disch Hosp
--- NOTE | 2022-06-22 10:44 | PHA.DC.MC ---
Pharmacy Service has performed discharge medication reconciliation and counseling for this patient. 1. ASCORBIC ACID 500MG PO BID 2. PANTOPRAZOLE 40MG PO BID 3. SUCRALFATE 1GM PO ACHS The patient's discharge medication list was reviewed for discrepancies and discrepancies were resolved. Home Medications allopurinol 300 mg tablet 300 mg PO DAILY 12/31/15 doxazosin 8 mg tablet (Cardura) 16 mg PO DAILY HEART 12/31/15 simvastatin 20 mg tablet 20 mg PO QHS 12/31/15 calcium carbonate 500 mg calcium (1,250 mg) chewable tablet 1,000 mg PO TID PRN Indigestion 06/09/22 calcium carbonate 600 mg calcium (1,500 mg) tablet (Calcium) 900 mg PO DAILY SUPPLEMENT 06/09/22 cholecalciferol (vitamin D3) 25 mcg (1,000 unit) capsule (Vitamin D3) 25 mcg PO DAILY SUPPLEMENT 06/09/22 escitalopram oxalate 20 mg tablet (Lexapro) 20 mg PO DAILY 06/09/22 valsartan 320 mg tablet 320 mg PO QHS 06/09/22 folic acid 1 mg tablet 1 mg PO DAILY #30 tabs 06/17/22 aspirin 81 mg tablet,delayed release 81 mg PO DAILY 06/20/22 ondansetron HCl 4 mg tablet 4 mg PO Q8H PRN Nausea 06/20/22 oxycodone 5 mg tablet 5 - 10 mg PO Q4H PAIN 06/20/22 ascorbic acid (vitamin C) 500 mg tablet 500 mg PO BID #60 tabs 06/22/22 ferrous sulfate 325 mg (65 mg iron) tablet 325 mg PO DAILY #90 tabs 06/22/22 pantoprazole 40 mg tablet,delayed release (Protonix) 40 mg PO BID #60 tabs 06/22/22 sucralfate 1 gram tablet 1 g PO 4X/DAY #120 tabs 06/22/22 The patient was counseled on the following discharge medications and changes in medications for homegoing were reviewed. The Reason for Use, instructions for use, and potential side effects were reviewed for all new medications. The patient's questions regarding all of their medications were answered. The patient was able to verbally demonstrate an understanding of their discharge medications. Patient counseled by student ministry pastorJames.
== END 2022-06-22 10:56 | disposition home or self-care (01) | DRG 811 ==
LOC: ED 14:17 → MS3 15:14
PROVIDERS: Internal Medicine Gastroenterology; Admitting Provider Student in an Organized Health Care Education/Training Program; Emergency Provider Emergency Medicine; PCP Preventive Medicine Occupational Medicine; Visit Provider Internal Medicine
PROC: 0DJD8ZZ Inspection of Lower Intestinal Tract, Via Natural or Artificial Opening Endoscopic (ICD-10-PCS; CPT 45378; principal; 2022-06-21 15:25)
DX: D64.9 Anemia, unspecified (principal); K31.811 Angiodysplasia of stomach and duodenum with bleeding; K57.31 Diverticulosis of large intestine without perforation or abscess with bleeding; K26.9 Duodenal ulcer, unspecified as acute or chronic, without hemorrhage or perforation; I95.1 Orthostatic hypotension; E78.5 Hyperlipidemia, unspecified; E78.00 Pure hypercholesterolemia, unspecified; I10 Essential (primary) hypertension; K44.9 Diaphragmatic hernia without obstruction or gangrene; K64.1 Second degree hemorrhoids; K63.5 Polyp of colon; F32.A Depression, unspecified; Z66 Do not resuscitate; Z51.5 Encounter for palliative care; H91.90 Unspecified hearing loss, unspecified ear; Z96.641 Presence of right artificial hip joint
CPT/HCPCS: 36415; 74019; 80048; 80053; 81001; 83690; 85025; 85610; 85730; 86850; 86900; 86901; 86920; 86922; 88305; 93005; 97162; 97166; 99283; 99285; J7030; J7040; J7120; P9016; A4216; J2405